=== PATIENT | female | born 1960 | race Caucasian/White ===

== ENCOUNTER → 2017-01-15 | Outpatient (CLI) | payer OTHER ==
--- NOTE | 2017-01-15 13:58 | REP ---
Clinical: Radiculopathy. Cervical pain. Technique: AP and lateral views of the cervical through lumbosacral spine. Findings: Multilevel moderate to advanced degenerative changes are noted throughout the spine and findings include osteophytosis, endplate sclerosis and disc space narrowing. Alignment is otherwise normal and maintained throughout. There is no evidence for acute fracture / compression injury or subluxation. Impression: Moderate to advanced multilevel degenerative changes throughout the entire cervical through lumbar spine. No acute fracture / compression injury or subluxation. Signed by Darren De Guzman MD 01/15/2017 01:49 P
--- NOTE | 2017-01-15 17:02 | REPMRS ---
Patient History The patient states she has not had a clinical breast exam in over a year. Family history of breast cancer in mother. Digital Mammo Screening Bilat: January 15, 2017 - Exam #: [id number] Bilateral CC and MLO view(s) were taken. Technologist: Breana Lim, Technologist Prior study comparison: March 02, 2014, bilateral digital mammo screening bilat performed at [facility]. FINDINGS: There are scattered fibroglandular densities. There has been no change in the appearance of the mammogram from the prior studies. There is a mild amount of scattered fibroglandular density which is fairly symmetric. There is no interval development of dominant mass, architectural distortion, or clustered microcalcification suggestive of malignancy. ASSESSMENT: BI-RADS/ACR category 1 mammogram. Negative. Recommendation Routine screening mammogram in 1 year (for women over age 40). This mammogram was interpreted with the aid of an FDA-approved computer-aided dectection system. Electronically Signed By: Alec Mcclelland MD 01/15/17 [id number]
== END ==
LOC: M RAD 13:22
PROVIDERS: ATTEND Nurse Practitioner
DX: Z12.31 Encounter for screening mammogram for malignant neoplasm of breast (principal); M54.2 Cervicalgia
CPT/HCPCS: 72082; G0202

== ENCOUNTER → 2017-01-25 | Outpatient (CLI) | payer OTHER ==
--- NOTE | 2017-01-25 13:15 | REP ---
PARANASAL SINUSES: Four views of the paranasal sinuses are performed. No definite abnormal sinus opacification is seen. Adenoids do not appear to be enlarged. Nasopharyngeal airway appears widely patent. IMPRESSION: No radiographic evidence of significant sinusitis. Signed by Alex Singh MD 01/25/2017 02:25 P
== END ==
LOC: M RAD 11:28
PROVIDERS: ATTEND Physician Assistant
DX: J32.9 Chronic sinusitis, unspecified (principal)

== ENCOUNTER → 2017-07-12 | Outpatient (CLI) | payer OTHER ==
[2017-07-12 10:24] LABS: ANION GAP 8 MEQ/L (8-16); BLOOD UREA NITROGEN 14 MG/DL (7-18); CALCIUM LEVEL 8.6 MG/DL (8.5-10.1); CARBON DIOXIDE LEVEL 28 MEQ/L (21-32); CHLORIDE LEVEL 105 MEQ/L (98-107); GLOMERULAR FILTRATION RATE > 60.0 (>51); GLUCOSE, FASTING 151 MG/DL (70-100); POTASSIUM SERUM 4.2 MEQ/L (3.5-5.1); SODIUM LEVEL 141 MEQ/L (136-145)
[2017-07-12 10:43] LABS: HEMOGLOBIN 14.1 g/dl (12.0-16.0); MEAN CORPUSCULAR HEMOGLOBIN 31.8 pg (27.0-33.0); MEAN CORPUSCULAR HGB CONC 33.6 g/dl (32.0-36.5); MEAN CORPUSCULAR VOLUME 94.8 fl (80.0-96.0); PLATELET COUNT, AUTOMATED 289 10^3/uL (150-450); RED BLOOD COUNT 4.43 10^6/uL (4.00-5.40); RED CELL DISTRIBUTION WIDTH 12.7 % (11.5-14.5); WHITE BLOOD COUNT 9.5 10^3/uL (4.0-10.0)
== END ==
LOC: M LAB 09:11
DX: I10 Essential (primary) hypertension (principal); J44.9 Chronic obstructive pulmonary disease, unspecified; F17.200 Nicotine dependence, unspecified, uncomplicated; E78.2 Mixed hyperlipidemia
CPT/HCPCS: 80048

== ENCOUNTER 2017-07-26 08:29 | Day surgery (SDC) | payer OTHER ==
[2017-07-26] MEDS: LR 1,000 ML IV ×2 (10:15→16:00)
[2017-07-26] MEDS ORDERED: dexameTHASONE 4 MG/ML 1ML VIAL (J1100) As Ordered (12:11)
[2017-07-26] MEDS ORDERED: PROPOFOL 200 MG/20 ML VIAL As Ordered (12:11)
[2017-07-26] MEDS ORDERED: MIDAZOLAM INJ 2 MG/2 ML VIAL (J2250) As Ordered (12:11)
[2017-07-26] MEDS ORDERED: LIDOCAINE 2% INJ 100 MG/5 ML SDV (FOR ANES.) As Ordered (12:11)
[2017-07-26] MEDS ORDERED: fentaNYL 100 MCG/2 ML INJECTION (J3010) As Ordered ×3 (12:11→13:46)
[2017-07-26] MEDS ORDERED: ROCURONIUM BROMIDE 50 MG/5 ML VIAL As Ordered (12:11)
[2017-07-26] MEDS: LIDOCAINE W/EPINEPHRINE 1% 20ML VIAL As Ordered (12:15)
[2017-07-26] MEDS: METHYLENE BLUE 0.5% (5MG/ML) 10 ML AMP (PROVAYBLUE)(Q9968 PER 1MG) As Ordered (12:15)
[2017-07-26] MEDS: CIPRODEX OTIC SUSP 7.5ML As Ordered (12:15)
[2017-07-26] MEDS: EPINEPHrine 1MG/ML INJ 30ML MD-VIAL As Ordered (12:16)
[2017-07-26] MEDS ORDERED: ONDANSETRON 4MG/2ML VIAL (J2405) As Ordered (14:39)
[2017-07-26] MEDS ORDERED: KETOROLAC 60 MG/2 ML VIAL (J1885) As Ordered (14:42)
[2017-07-26] MEDS ORDERED: BACITRACIN OINT 30GM As Ordered (14:46)
[2017-07-26] MEDS ORDERED: METOCLOPRAMIDE INJ 10MG/2ML VIAL (J2765) IV (16:00)
[2017-07-26] MEDS ORDERED: fentaNYL 100 MCG/2 ML INJECTION (J3010) IV (16:00)
[2017-07-26] MEDS ORDERED: ONDANSETRON 4MG/2ML VIAL (J2405) IV (16:00)
[2017-07-26] MEDS ORDERED: PERCOCET 5MG/325MG TAB PO (16:00)
[2017-07-26] MEDS ORDERED: ANEXSIA, NORCO 7.5MG/325MG TABLET(HYDROCODONE/APAP) PO (16:15)
[2017-07-26] MEDS ORDERED: ALBUTEROL 90 MCG/ACT 8GM HFA INHALER INH (16:30)
[2017-07-26] MEDS: ANEXSIA, NORCO 7.5MG/325MG TABLET(HYDROCODONE/APAP) PO (16:35)
[2017-07-26] MEDS: IBUPROFEN 800 MG TAB PO (21:05)
[2017-07-27] MEDS: IBUPROFEN 800 MG TAB PO ×2 (04:57→14:26)
[2017-07-27] MEDS: ANEXSIA, NORCO 7.5MG/325MG TABLET(HYDROCODONE/APAP) PO (07:05)
[2017-07-27] MEDS: LISINOPRIL 20 MG TAB PO (08:35)
== END 2017-07-27 15:15 | disposition home or self-care (01) ==
LOC: M SDC 08:29 → M PED 16:05
DX: H71.21 Cholesteatoma of mastoid, right ear (principal); H90.11 Conductive hearing loss, unilateral, right ear, with unrestricted hearing on the contralateral side; E66.9 Obesity, unspecified; Z79.899 Other long term (current) drug therapy; Z79.82 Long term (current) use of aspirin; F17.210 Nicotine dependence, cigarettes, uncomplicated; H60.41 Cholesteatoma of right external ear
CPT/HCPCS: 69637

== ENCOUNTER → 2017-11-15 | Outpatient (CLI) | payer OTHER | LOC: M EKG 13:30 | DX: Z01.818 Encounter for other preprocedural examination (principal) | CPT/HCPCS: 93005 ==

== ENCOUNTER 2017-11-19 06:56 | Observation (INO) | payer OTHER ==
[2017-11-19] MEDS ORDERED: LR 1,000 ML IV ×2 (07:15)
[2017-11-19] MEDS ORDERED: ROSUVASTATIN 10 MG TAB (CRESTOR) PO ×2 (09:00)
[2017-11-19] MEDS ORDERED: fentaNYL 100 MCG/2 ML INJECTION (J3010) As Ordered ×4 (10:07→10:10)
[2017-11-19] MEDS ORDERED: MIDAZOLAM INJ 2 MG/2 ML VIAL (J2250) As Ordered ×2 (10:10)
[2017-11-19] MEDS ORDERED: ONDANSETRON 4MG/2ML VIAL (J2405) As Ordered ×2 (10:10)
[2017-11-19] MEDS ORDERED: dexameTHASONE 4 MG/ML 1ML VIAL (J1100) As Ordered ×4 (10:10)
[2017-11-19] MEDS ORDERED: KETOROLAC 60 MG/2 ML VIAL (J1885) As Ordered ×2 (10:12)
[2017-11-19] MEDS ORDERED: LIDOCAINE 2% INJ 100 MG/5 ML SDV (FOR ANES.) As Ordered ×2 (10:12)
[2017-11-19] MEDS ORDERED: ROCURONIUM BROMIDE 50 MG/5 ML VIAL As Ordered ×2 (10:12)
[2017-11-19] MEDS ORDERED: PROPOFOL 200 MG/20 ML VIAL As Ordered ×4 (10:12→10:30)
[2017-11-19] MEDS ORDERED: HYDROmorphone HCL 2 MG/ML 1ML VIAL (J1170) As Ordered ×2 (10:27)
[2017-11-19] MEDS ORDERED: PHENYLEPHRINE INJ 10MG/ML VIAL (J2370) As Ordered ×2 (10:46)
[2017-11-19] MEDS: METHYLENE BLUE 0.5% (5MG/ML) 10 ML AMP (PROVAYBLUE)(Q9968 PER 1MG) As Ordered ×2 (11:13)
[2017-11-19] MEDS: EPINEPHrine INJ 1 MG/ML 1ML AMP As Ordered ×2 (11:13)
[2017-11-19] MEDS: CIPRODEX OTIC SUSP 7.5ML As Ordered ×2 (11:57)
[2017-11-19] MEDS: LIDOCAINE W/EPINEPHRINE 1% 20ML VIAL As Ordered ×2 (12:11)
[2017-11-19] MEDS: BACITRACIN OINT 30GM As Ordered ×2 (12:26)
[2017-11-19] MEDS: LR 1,000 ML IV ×4 (12:52→16:21)
[2017-11-19] MEDS ORDERED: LEVALBUTEROL 1.25 MG/0.5 ML CONCENTRATE NEB As Ordered ×2 (12:57)
[2017-11-19] MEDS: LEVALBUTEROL 1.25 MG/0.5 ML CONCENTRATE NEB INH ×2 (13:00)
[2017-11-19] MEDS ORDERED: fentaNYL 100 MCG/2 ML INJECTION (J3010) IV ×2 (13:00)
[2017-11-19] MEDS ORDERED: ONDANSETRON 4MG/2ML VIAL (J2405) IV ×2 (13:00)
[2017-11-19] MEDS ORDERED: HYDROMORPHONE HCL 0.5 MG/ 0.5 ML SYRINGE (J1170 PER 1) IV ×2 (13:00)
[2017-11-19] MEDS ORDERED: PERCOCET 5MG/325MG TAB PO ×2 (13:00)
[2017-11-19] MEDS ORDERED: ANEXSIA, NORCO 7.5MG/325MG TABLET(HYDROCODONE/APAP) PO ×2 (14:45)
[2017-11-19] MEDS: LISINOPRIL 20 MG TAB PO ×2 (16:01)
[2017-11-19] MEDS: IBUPROFEN 800 MG TAB PO ×2 (17:44)
[2017-11-19] MEDS: AUGMENTIN 875 MG TAB PO ×4 (21:00→23:39)
[2017-11-20] MEDS: LR 1,000 ML IV ×2
[2017-11-20] MEDS ORDERED: UNRESOLVED CLARIFICATION ENTRY XX ×2 (00:01)
[2017-11-20] MEDS: IBUPROFEN 800 MG TAB PO ×2 (04:25)
[2017-11-20] MEDS: AUGMENTIN 875 MG TAB PO ×2 (08:55)
[2017-11-20] MEDS: LISINOPRIL 20 MG TAB PO ×2 (08:56)
== END 2017-11-20 09:20 | disposition home or self-care (01) ==
LOC: M SDC 06:56 → M PED 12:30 → M SDC 11-20 09:43 → M PED 15:18
DX: H71.21 Cholesteatoma of mastoid, right ear (principal); H71.01 Cholesteatoma of attic, right ear; I10 Essential (primary) hypertension; J44.9 Chronic obstructive pulmonary disease, unspecified; M19.90 Unspecified osteoarthritis, unspecified site; M54.81 Occipital neuralgia; F17.210 Nicotine dependence, cigarettes, uncomplicated; Z79.899 Other long term (current) drug therapy; Z79.2 Long term (current) use of antibiotics
CPT/HCPCS: 69641

== ENCOUNTER → 2017-12-27 | Outpatient (REF) | payer OTHER ==
[2017-12-27 14:23] LABS: APPEARANCE, URINE TURBID (CLEAR); BACTERIA, URINE AUTO NEGATIVE (NEGATIVE); BILIRUBIN, URINE AUTO NEGATIVE (NEGATIVE); BLOOD, URINE BLOOD 1+ (NEGATIVE); COLOR, URINE YELLOW (YELLOW); GLUCOSE, URINE (UA) AUTO 2+ mg/dL (NEGATIVE); KETONE, URINE AUTO NEGATIVE (NEGATIVE); LEUKOCYTE ESTERASE, URINE AUTO 3+ (NEGATIVE); NITRITE, URINE AUTO POSITIVE (NEGATIVE); PROTEIN, URINE AUTO NEGATIVE (NEGATIVE); RBC, URINE AUTO 9 /HPF (0-3); SPECIFIC GRAVITY URINE AUTO 1.011 (1.002-1.035); SQUAMOUS EPITHELIAL CELL UR AU 2 /HPF (0-6); UROBILINOGEN, URINE AUTO 0.2 mg/dL (0.0-2.0); WBC, URINE AUTO TNTC /HPF (0-3)
== END ==
LOC: M LAB REF 12:47
DX: N39.0 Urinary tract infection, site not specified (principal)

== ENCOUNTER → 2018-01-13 | Outpatient (CLI) | payer OTHER ==
[2018-01-13 22:12] LABS: ALKALINE PHOSPHATASE 113 U/L (45-117); ALT/SGPT 27 U/L (12-78); ANION GAP 10 MEQ/L (8-16); AST/SGOT 21 U/L (7-37); BILIRUBIN,TOTAL 0.2 MG/DL (0.2-1.0); BLOOD UREA NITROGEN 12 MG/DL (7-18); CALCIUM LEVEL 8.7 MG/DL (8.5-10.1); CARBON DIOXIDE LEVEL 24 MEQ/L (21-32); CHLORIDE LEVEL 103 MEQ/L (98-107); CREATININE FOR GFR 0.78 MG/DL (0.55-1.30); GLOMERULAR FILTRATION RATE > 60.0 (>51); GLUCOSE, FASTING 126 MG/DL (70-100); POTASSIUM SERUM 4.3 MEQ/L (3.5-5.1); SODIUM LEVEL 137 MEQ/L (136-145); TRIGLYCERIDES LEVEL 460 MG/DL (<150)
[2018-01-13 22:13] LABS: ALBUMIN 3.5 GM/DL (3.2-5.2); TOTAL PROTEIN 7.3 GM/DL (6.4-8.2)
[2018-01-13 23:29] LABS: ALBUMIN/GLOBULIN RATIO 0.92 (1.00-1.93); CHOLESTEROL LEVEL 197 MG/DL (<200); CHOLESTEROL RISK RATIO 5.472 (<5); HDL CHOLESTEROL 36 MG/DL (>40); NON-HDL-C 161 MG/DL
[2018-01-14 00:45] LABS: ESTIMATED AVERAGE GLUCOSE 157 MG/DL (60-110); HEMOGLOBIN A1c 7.1 %
== END ==
LOC: M LAB 11:24
DX: R73.01 Impaired fasting glucose (principal); I10 Essential (primary) hypertension
CPT/HCPCS: 80053

== ENCOUNTER → 2018-01-20 | Outpatient (CLI) | payer OTHER | LOC: M RAD 11:11 | DX: Z12.31 Encounter for screening mammogram for malignant neoplasm of breast (principal) | CPT/HCPCS: 77067 ==

== ENCOUNTER 2018-01-24 08:08 | Observation (INO) | payer OTHER ==
[2018-01-24] MEDS: EPINEPHrine INJ 1 MG/ML 1ML AMP As Ordered (06:50)
[2018-01-24 09:18] LABS: BEDSIDE GLUCOSE 112 MG/DL (70-105)
[2018-01-24] MEDS ORDERED: ONDANSETRON 4MG/2ML VIAL (J2405) As Ordered (09:22)
[2018-01-24] MEDS ORDERED: dexameTHASONE 4 MG/ML 1ML VIAL (J1100) As Ordered ×2 (09:22→09:23)
[2018-01-24] MEDS ORDERED: LIDOCAINE 2% INJ 100 MG/5 ML SDV (FOR ANES.) As Ordered (09:22)
[2018-01-24] MEDS ORDERED: PROPOFOL 200 MG/20 ML VIAL As Ordered (09:22)
[2018-01-24] MEDS ORDERED: ROCURONIUM BROMIDE 50 MG/5 ML VIAL As Ordered (09:23)
[2018-01-24] MEDS ORDERED: MIDAZOLAM INJ 2 MG/2 ML VIAL (J2250) As Ordered (09:24)
[2018-01-24] MEDS ORDERED: fentaNYL 100 MCG/2 ML INJECTION (J3010) As Ordered ×2 (09:24→10:41)
[2018-01-24] MEDS ORDERED: HYDROmorphone HCL 2 MG/ML 1ML VIAL (J1170) As Ordered (10:48)
[2018-01-24] MEDS: LIDOCAINE W/EPINEPHRINE 1% 20ML VIAL As Ordered (10:54)
[2018-01-24] MEDS: METHYLENE BLUE 0.5% (5MG/ML) 10 ML AMP (PROVAYBLUE)(Q9968 PER 1MG) As Ordered (11:01)
[2018-01-24] MEDS: EPINEPHrine 1MG/ML INJ 30ML MD-VIAL As Ordered (11:01)
[2018-01-24] MEDS ORDERED: PHENYLephrine HCL 500 MCG/5 ML (100MCG/ML) SYRINGE (J2370) As Ordered (11:20)
[2018-01-24] MEDS ORDERED: SUCCINYLCHOLINE 100 MG/5 ML SYRINGE (J0330) As Ordered (11:20)
[2018-01-24] MEDS ORDERED: SUGAMMADEX SODIUM 500 MG/5 ML VIAL (BRIDION) As Ordered (11:51)
[2018-01-24] MEDS ORDERED: METOPROLOL 5 MG/5 ML VIAL As Ordered (12:56)
[2018-01-24] MEDS: CIPRODEX OTIC SUSP 7.5ML As Ordered (13:03)
[2018-01-24] MEDS: BACITRACIN OINT 30GM As Ordered (13:18)
[2018-01-24] MEDS ORDERED: ONDANSETRON 4MG/2ML VIAL (J2405) IV (14:30)
[2018-01-24] MEDS ORDERED: METOCLOPRAMIDE INJ 10MG/2ML VIAL (J2765) IV (14:30)
[2018-01-24] MEDS ORDERED: MEPERIDINE INJ 25 MG/ML VIAL (J2175) IV (14:30)
[2018-01-24] MEDS: LR 1,000 ML IV (14:30)
[2018-01-24] MEDS ORDERED: fentaNYL 100 MCG/2 ML INJECTION (J3010) IV (14:30)
[2018-01-24] MEDS ORDERED: PERCOCET 5MG/325MG TAB PO (14:30)
[2018-01-24] MEDS ORDERED: ALBUTEROL 90 MCG/ACT 8GM HFA INHALER INH (14:45)
[2018-01-24] MEDS: IBUPROFEN 800 MG TAB PO (15:04)
[2018-01-24] MEDS: NORCO, ANEXSIA 5/325MG TABLET (HYDROcodone/ACETAMINOPHEN) PO (20:38)
[2018-01-24] MEDS: AMITRIPTYLINE 50 MG TAB PO (20:38)
[2018-01-24] MEDS ORDERED: NORTRIPTYLINE 25 MG CAP PO (21:00)
[2018-01-25] MEDS: NORCO, ANEXSIA 5/325MG TABLET (HYDROcodone/ACETAMINOPHEN) PO (04:58)
[2018-01-25] MEDS: metFORMIN (GLUCOPHAGE) 500 MG TAB PO (07:58)
[2018-01-25 07:59] LABS: BEDSIDE GLUCOSE 163 MG/DL (70-105)
[2018-01-25] MEDS: LISINOPRIL 20 MG TAB PO (08:00)
== END 2018-01-25 12:45 | disposition home or self-care (01) ==
LOC: M SDC 08:08 → M PED 15:25 → M SDC 13:39 → M PED 13:40
PROVIDERS: Otolaryngology
DX: H71.91 Unspecified cholesteatoma, right ear (principal); E11.9 Type 2 diabetes mellitus without complications; I10 Essential (primary) hypertension; J44.9 Chronic obstructive pulmonary disease, unspecified; F17.210 Nicotine dependence, cigarettes, uncomplicated; Z79.899 Other long term (current) drug therapy; Z79.4 Long term (current) use of insulin
CPT/HCPCS: 69637

== ENCOUNTER → 2018-04-08 | Outpatient (CLI) | payer OTHER | LOC: M RAD 10:49 | DX: M50.320 Other cervical disc degeneration, mid-cervical region, unspecified level (principal); M50.220 Other cervical disc displacement, mid-cervical region, unspecified level; M54.81 Occipital neuralgia; M47.816 Spondylosis without myelopathy or radiculopathy, lumbar region; M47.817 Spondylosis without myelopathy or radiculopathy, lumbosacral region; M51.27 Other intervertebral disc displacement, lumbosacral region | CPT/HCPCS: 72148 ==

== ENCOUNTER → 2018-05-11 | Outpatient (REF) | payer OTHER ==
[~2018-05-11] MED LIST: ADVI200C5 PO; ANOR1AER IN; ASPI1TAB PO; AUGM875T28 PO; CEFU1TAB20 PO; COMBAER6 INH; HYDR-2809 PO; LISI-538 PO; METF500T13 PO; NORT25CA2 PO; TIZA2CAP PO; VENTAER IN
[2018-05-11 22:20] LABS: APPEARANCE, URINE CLOUDY (CLEAR); BACTERIA, URINE AUTO 1+ (NEGATIVE); BILIRUBIN, URINE AUTO NEGATIVE (NEGATIVE); BLOOD, URINE BLOOD 1+ (NEGATIVE); COLOR, URINE YELLOW (YELLOW); GLUCOSE, URINE (UA) AUTO NEGATIVE (NEGATIVE); KETONE, URINE AUTO NEGATIVE (NEGATIVE); LEUKOCYTE ESTERASE, URINE AUTO 3+ (NEGATIVE); MUCUS, URINE SMALL (NEGATIVE); NITRITE, URINE AUTO NEGATIVE (NEGATIVE); PROTEIN, URINE AUTO 1+ mg/dL (NEGATIVE); RBC, URINE AUTO 16 /HPF (0-3); SPECIFIC GRAVITY URINE AUTO 1.006 (1.002-1.035); SQUAMOUS EPITHELIAL CELL UR AU 0 /HPF (0-6); UROBILINOGEN, URINE AUTO 0.2 mg/dL (0.0-2.0); WBC, URINE AUTO TNTC /HPF (0-3)
== END ==
LOC: M LAB REF 10:48
PROVIDERS: ATTEND Physician Assistant Medical
DX: N39.0 Urinary tract infection, site not specified (principal)

== ENCOUNTER → 2018-06-09 | Outpatient (CLI) | payer OTHER ==
[2018-06-09 09:28] LABS: BLOOD UREA NITROGEN 14 MG/DL (7-18); CALCIUM LEVEL 8.5 MG/DL (8.5-10.1); CARBON DIOXIDE LEVEL 27 MEQ/L (21-32); CHLORIDE LEVEL 104 MEQ/L (98-107); GLOMERULAR FILTRATION RATE > 60.0 (>51); GLUCOSE, FASTING 123 MG/DL (70-100); POTASSIUM SERUM 4.2 MEQ/L (3.5-5.1); SODIUM LEVEL 138 MEQ/L (136-145)
[2018-06-09 09:31] LABS: HEMOGLOBIN A1c 7.6 %
== END ==
LOC: M LAB 08:10
PROVIDERS: ATTEND Nurse Practitioner Family
DX: I10 Essential (primary) hypertension (principal); E11.9 Type 2 diabetes mellitus without complications

== ENCOUNTER → 2018-09-08 | Outpatient (CLI) | payer OTHER ==
[~2018-09-08] MED LIST changes: -ASPI1TAB PO; +ASPI81TA26 PO
[2018-09-08 14:35] LABS: BLOOD UREA NITROGEN 25 MG/DL (7-18); CARBON DIOXIDE LEVEL 27 MEQ/L (21-32); CHLORIDE LEVEL 108 MEQ/L (98-107); CHOLESTEROL LEVEL 212 MG/DL (<200); CHOLESTEROL RISK RATIO 5.888 (<5); CREATININE FOR GFR 1.05 MG/DL (0.55-1.30); GLOMERULAR FILTRATION RATE 57.3 (>51); GLUCOSE, FASTING 224 MG/DL (70-100); HDL CHOLESTEROL 36 MG/DL (>40); HEMOGLOBIN A1c 6.7 %; NON-HDL-C 176 MG/DL; POTASSIUM SERUM 4.5 MEQ/L (3.5-5.1); SODIUM LEVEL 139 MEQ/L (136-145); TRIGLYCERIDES LEVEL 709 MG/DL (<150)
== END ==
LOC: M LAB 13:06
PROVIDERS: ATTEND Nurse Practitioner Family
DX: E11.9 Type 2 diabetes mellitus without complications (principal); I10 Essential (primary) hypertension

== ENCOUNTER → 2018-09-15 | Outpatient (CLI) | payer OTHER ==
[2018-09-15 10:40] LABS: CHOLESTEROL RISK RATIO 4.272 (<5)
== END ==
LOC: M LAB 09:42
PROVIDERS: ATTEND Nurse Practitioner Family
DX: I10 Essential (primary) hypertension (principal)

== ENCOUNTER 2018-10-28 09:10 | Outpatient (RCR) | payer OTHER | END 2018-11-02 | LOC: M PT 09:10 | PROVIDERS: ATTEND Nurse Practitioner Family | DX: M54.2 Cervicalgia (principal) ==

== ENCOUNTER → 2018-10-28 | Outpatient (CLI) | payer OTHER ==
--- NOTE | 2018-10-28 11:36 | REP ---
MRI LUMBAR SPINE WITHOUT CONTRAST: HISTORY: Spinal stenosis, radiculopathy. Progressive low back pain. Comparison MRI lumbar spine study April 08, 2018. TECHNIQUE: Sagittal and axial T1- and T2-weighted scans are acquired in the usual fashion with and without fat saturation. Sequences include spin echo, turbo spin echo, and STIR imaging sequences. MRI FINDINGS: Lumbar vertebral body heights are preserved. Alignment is normal. Diffuse degenerative spondylosis changes are again noted. There is diffuse bulging of the posterior margin of the T10-11 and T11-12 disc spaces indenting the thecal sac margin. No cord compression is seen. The tip of the conus is normal in position and appearance at T12-L1. There is mild central disc bulging of the T12-L1 disc. No central canal stenosis is seen. At L1-2, axial and sagittal images show diffuse disc bulging and posterior osteophytic ridging. There is mild facet and ligamentum flavum hypertrophy again noted. These findings are unchanged. L2-3, there is moderate diffuse disc bulging and posterior osteophytic ridging indenting the ventral margin of the thecal sac. There is bilateral facet and ligamentum flavum hypertrophy and as a result, there is mild central canal stenosis. This is unchanged from the April 08, 2018 prior study. Midline AP dimension of the thecal sac is present at L2-3. The CSF signal is somewhat effaced. At L3-4, there are similar findings with bilateral facet and ligamentum flavum hypertrophy. There is a small central focal disc protrusion again noted unchanged. Borderline canal size is seen. There is neural foraminal narrowing on the left. This is unchanged. At L4-5, bilateral facet and ligamentum flavum hypertrophy. There is mild central canal stenosis with posterior disc bulging diffusely. The disc bulge is more prominent to the right. These findings are unchanged as well. There is mild central canal stenosis at L4-5 again noted. Midline AP dimension of the thecal sac is 7 mm. There is mild left-sided neural foraminal narrowing again noted. At L5-S1, there is mild disc bulging and osteophytic ridging subtly indenting the ventral margin of the thecal sac. Facet hypertrophy is noted. No central canal stenosis is visible. No neural foraminal narrowing. IMPRESSION: Fairly advanced degenerative spondylosis changes at multiple levels. Findings are felt to be stable from the prior study of April 08, 2018. Electronically Signed by David Mccellland MD 10/28/2018 03:48 P
== END ==
LOC: M RAD 10:22
PROVIDERS: ATTEND Nurse Practitioner Family
DX: M51.24 Other intervertebral disc displacement, thoracic region (principal); M51.26 Other intervertebral disc displacement, lumbar region; M48.061 Spinal stenosis, lumbar region without neurogenic claudication

== ENCOUNTER 2018-11-17 12:50 | Outpatient (RCR) | payer OTHER | END 2018-12-03 | LOC: M PT 12:50 | PROVIDERS: ATTEND Nurse Practitioner Family | DX: Z51.89 Encounter for other specified aftercare (principal); M54.2 Cervicalgia ==

== ENCOUNTER → 2018-12-03 | Outpatient (CLI) | payer OTHER ==
[2018-12-03 07:16] LABS: HEMOGLOBIN A1c 6.5 %
[2018-12-03 07:21] LABS: ALBUMIN 3.7 GM/DL (3.2-5.2); BILIRUBIN,TOTAL 0.3 MG/DL (0.2-1.0); CALCIUM LEVEL 8.9 MG/DL (8.5-10.1); CREATININE FOR GFR 1.08 MG/DL (0.55-1.30); GLOMERULAR FILTRATION RATE 55.5 (>51); POTASSIUM SERUM 4.7 MEQ/L (3.5-5.1); TOTAL PROTEIN 7.7 GM/DL (6.4-8.2)
== END ==
LOC: M LAB 06:17
PROVIDERS: ATTEND Nurse Practitioner Family
DX: E11.9 Type 2 diabetes mellitus without complications (principal)

== ENCOUNTER 2018-12-26 07:53 | Day surgery (SDC) | payer OTHER ==
[~2018-12-26] VITALS: Ht 160 cm; Wt 81.2 kg
[2018-12-26] MEDS: LR 1,000 ML IV ONE (06:00)
[~2018-12-26 07:53] MED LIST changes: +HYDR-4514 PO; +IBUP80TA PO; +METF750T PO; +NESI25TA PO; +OCUF0.25 AU
[2018-12-26 08:36] LABS: HEMATOCRIT 40.9 % (36.0-47.0); HEMOGLOBIN 13.8 g/dl (12.0-15.5); MEAN CORPUSCULAR HGB CONC 33.7 g/dl (32.0-36.5); MEAN CORPUSCULAR VOLUME 97.8 fl (80.0-96.0); PLATELET COUNT, AUTOMATED 236 10^3/uL (150-450); RED BLOOD COUNT 4.18 10^6/uL (4.00-5.40); WHITE BLOOD COUNT 8.7 10^3/uL (4.0-10.0)
[2018-12-26] MEDS ORDERED: **UNRESOLVED NON-FORMULARY MED ORDER XX SCH (09:00)
[2018-12-26] MEDS ORDERED: ONDANSETRON 4MG/2ML VIAL (J2405) As Ordered ONE (09:21)
[2018-12-26] MEDS ORDERED: dexameTHASONE 4 MG/ML 1ML VIAL (J1100) As Ordered ONE (09:21)
[2018-12-26] MEDS ORDERED: ROCURONIUM BROMIDE 50 MG/5 ML VIAL As Ordered ONE ×2 (09:21→14:53)
[2018-12-26] MEDS ORDERED: fentaNYL 250 MCG/5 ML INJECTION (J3010) As Ordered ONE (09:21)
[2018-12-26] MEDS ORDERED: PROPOFOL 200 MG/20 ML VIAL As Ordered ONE ×2 (09:21→16:55)
[2018-12-26] MEDS ORDERED: LIDOCAINE 2% INJ 100 MG/5 ML SDV (FOR ANES.) As Ordered ONE (09:21)
[2018-12-26] MEDS ORDERED: MIDAZOLAM INJ 2 MG/2 ML VIAL (J2250) As Ordered ONE (09:21)
[2018-12-26] MEDS: EPINEPHrine INJ 1 MG/ML 1ML AMP As Ordered ONE (12:32)
[2018-12-26] MEDS: LIDOCAINE W/EPINEPHRINE 1% 20ML VIAL As Ordered ONE (13:40)
[2018-12-26] MEDS: METHYLENE BLUE 0.5% (5MG/ML) 10 ML AMP (PROVAYBLUE)(Q9968 PER 1MG) As Ordered ONE (13:50)
[2018-12-26] MEDS: EPINEPHrine 1MG/ML INJ 30ML MD-VIAL As Ordered ONE (13:50)
[2018-12-26] MEDS ORDERED: ACETAMINOPHEN 1000MG 100ML IV BTL (OFIRMEV) (J0131 PER 10MG) As Ordered ONE (14:03)
[2018-12-26] MEDS ORDERED: HYDROmorphone HCL 2 MG/ML 1ML VIAL (J1170) As Ordered ONE (14:48)
[2018-12-26] MEDS ORDERED: SUGAMMADEX SODIUM 500 MG/5 ML VIAL (BRIDION) As Ordered ONE (16:23)
[2018-12-26] MEDS: BACITRACIN OINT 30GM As Ordered ONE (16:29)
[2018-12-26] MEDS: CIPRODEX OTIC SUSP 7.5ML As Ordered ONE (16:40)
[2018-12-26] MEDS ORDERED: fentaNYL 100 MCG/2 ML INJECTION (J3010) IV PRN ×2 (17:30→22:30)
[2018-12-26] MEDS ORDERED: oxyCODONE 5MG TAB PO PRN ×2 (17:30→22:30)
[2018-12-26] MEDS ORDERED: LR 1,000 ML IV SCH ×2 (17:30→22:30)
[2018-12-26] MEDS ORDERED: ONDANSETRON 4MG/2ML VIAL (J2405) IV PRN ×2 (17:30→22:30)
[2018-12-26] MEDS ORDERED: ALBUTEROL 90 MCG/ACT 8GM HFA INHALER INH PRN (17:45)
[2018-12-26 18:05] VITALS: BP 157/75
[2018-12-27] MEDS ORDERED: LISINOPRIL 20 MG TAB PO SCH (09:00)
--- NOTE | 2018-12-27 14:51 | ECGEPIP ---
[facility] Test Date: 2018-12-26 Pat Name: MELONY OLIVARES Department: Room: - Gender: Female Epic Analyst: DANIEL : 1960 Requested By: JOSE DE JESUS Uribe Order Number: [id number] Reading MD: Soledad Gillis Measurements Intervals [place] Rate: 93 P: 70 TN: 152 QRS: -16 QRSD: 83 T: 43 QT: 360 QTc: 449 Interpretive Statements SINUS RHYTHM POOR R WAVE PROGRESSION SIMILAR TO 11/15/17 Electronically Signed on 12-27-2018 14:51:29 EDT by Soledad Gillis
--- NOTE | 2018-12-29 21:47 | RO ---
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 OPERATION PERFORMED: Right tympanomastoidectomy with a canal wall down tympanomastoidectomy. Also removal of foreign body in ear canal c/w retained q- tip. SURGEON: Henrique Steele Jr, MD ASSOCIATE ENGINEER: ANESTHESIA: Initially was general via endotracheal tube by Dr. Garcia along with WEALTH MANAGEMENT MANAGER. INDICATIONS FOR PROCEDURE: Patient with recurrent cholesteatoma with severe COPD, as well as previous extrusion of her prosthesis. Plan at this point was to see if she could be salvaged, but at this point, canal wall down mastoidectomy was performed. DESCRIPTION OF PROCEDURE: Unfortunately, in this patient, because of her high narcotic content, she could not be kept under control from previous experiences without keeping her paralyzed and because of the difficulty in keeping her at the proper depth of anesthesia. Therefore, facial nerve monitor was not used as it was more important to keep her stable without moving, which would be difficult to keep her under control with the anesthesia because of her high maintenance. PROCEDURE IN DETAIL: With the patient in the supine position after being induced, intubated, prepped and draped in the usual fashion, the ear canal was examined. There was a foreign body that was present, there was a retained Q-tip that was in the ear canal. This was removed and sent as a specimen of foreign body in the right ear canal. At this point, the vascular strip was injected with 1% lidocaine and 1:100,000 epinephrine, retroauricular incision site was also injected until a total of 10 mL was injected with a 27 gauge needle. The patient was prepped and draped in the usual fashion as well as the microscope. Once this was done, vascular strip was incised with a sickle knife and then with a #15 blade. Tympanomeatal flap was created after connecting with the round knife. As previously mentioned, there was a foreign body that was removed. There was perforation inferiorly as well as superiorly where she had the previous ossicular prosthesis that she had extruded and had been removed in the clinic previously. At this point, a retroauricular incision was incised with the cautery in the same one that was done before, cautery cutting at 20 and then coag at 25. This was elevated, fresh tympanomeatal fascia was obtained and further up incision site and placed in the Paparella press and pressed for 30 minutes and then opened up. After this was done, the cautery was used to find the posterior aspect of the mastoid, which was palpated and then utilizing the cautery at 25, this was taken down to the external cortex of the bone. Utilizing the [place] elevator, this was elevated, brought anteriorly. I should also mention that tympanomeatal flap had been previously created and brought up where the incision would be visible retroauricularly. The mastoid cortex was discovered with the cautery, guarded Bovie tip, posteriorly and then utilizing the [place], the mastoid cavity was entered. There was chronic inflammation present in the mastoid. Initially there was not cholesteatoma identified. However, upon dissecting further with a cotton ball with epi, there was a sac of cholesteatoma in the mastoid. This was elevated, a sample of this was removed and sent as specimen, as well as chronic inflammation as well. This was taken down so the mastoid could be completely seen where epitympanic space had been previously identified. Her ossicles had been completely eroded previously, and the total ossicular chain reconstruction prosthesis had been put in before. This area did have evidence of mild cholesteatoma that was present. There was also inferior perforation that was relatively new in the pars tensa. This area was elevated, and it became evident that again there was cholesteatoma going in the mesotympanic space, and there was also erosion of the posterior canal partially anyway, so at this point it was felt that the prudent thing would be to do a canal wall procedure. So, at this point, tympanomeatal flap was created and elevated. There was chronic inflammation. The previously chorda tympani was identified. Lateral semicircular canal was identified. Utilizing the 4 round cutting bur, the mastoid cavity was refreshened, taken down to smooth bone. Facial buttress was taken down as well as the bridge of the epitympanic space was removed and taken down as well. At this point, the 3 mm rayne bur was utilized to take down the facial buttress, facial recess was identified as well as the chorda tympani going into this area was cleared of bone but chorda spared. Part of the mastoid tip was also taken down as well but not completely. She did have a BIS monitor on, but when the paralysis started to wear off, along with even with the BIS monitor she was under control, she had some heavy breathing that caused significant moving, and she had to be re-paralyzed periodically throughout the case so that the surgeon could work effectively. Once this was done, the area was copiously irrigated. The mastoid cavity was freshened with the 3 rayne as unfortunately there was not a larger rayne bur available. This was done and smoothed out. The mesotympanic space did show an evidence of cholesteatoma more overlying near the region of the facial nerve. This was carefully dissected out. There was also further material that was also further dissected out as well. The facial nerve was intact. The patient then had the inferior middle ear space identified and elevated again with the Gimmick. There was no further cholesteatoma identified in the mesotympanic space. This was brought anteriorly. There was some chronic granulation tissue. Portions of this were biopsied with cups forceps and sent as well. After the canal wall down had been completed, the patient had Palva flap created and a meatoplasty was performed. A #15 blade was used to widen the opening 12 and 6 o'clock, taken posteriorly. The skin was kept and utilizing cup forceps, the deeper tissue was taken down and thinned. Once this was done, the temporalis fascia was placed as the medial graft in the inferior TM perforation and then Gelfoam with Ciprodex was also placed to the Silastic sheet 0.1, 3 mm was placed in the mesotympanic space and then the Gelfoam was placed in the middle meatus to improve the region. At this point, once this was done, attention was also done and the perforation was rimmed inferiorly appropriately, and again, the graft was placed as a medial graft. Again, Silastic spacer had been placed as well as Gelfoam, and then anteriorly Gelfoam was placed as well. At this point, the previous canal wall down mastoidectomy site further Gelfoam was placed in this area, portion of the material was also placed down. The Palva flap was placed posteriorly and then packed. There was Gelfoam that was placed and Ciprodex as well as OtoPore; three OtoPores were placed to maintain the width of the meatoplasty and to seat the Palva flap, as well as Vaseline impregnated gauze in the linda bowl as well as a cotton ball with bacitracin ointment. The retroauricular area was closed interrupted with #4-0 Vicryl followed by closing with a running interlocking #4- 0 nylon stitch retroauricularly. At this point, paper tape was placed over the posterior auricular region, as well as the cotton ball with Vaseline and a [place] dressing was applied. The patient was taken to the recovery room in satisfactory condition. Estimated blood loss was approximately 50 mL. There were no complications intraoperatively. MARISOL
== END 2018-12-26 18:30 | disposition home or self-care (01) ==
LOC: EEVIPCON 07:53 → M SDC 07:53
PROVIDERS: ATTEND Otolaryngology
DX: H70.11 Chronic mastoiditis, right ear (principal); H72.91 Unspecified perforation of tympanic membrane, right ear; J44.9 Chronic obstructive pulmonary disease, unspecified; G89.4 Chronic pain syndrome; I10 Essential (primary) hypertension; E11.9 Type 2 diabetes mellitus without complications; M12.9 Arthropathy, unspecified; M54.2 Cervicalgia; M54.81 Occipital neuralgia; R06.83 Snoring; R06.09 Other forms of dyspnea; Z79.899 Other long term (current) drug therapy; Z79.84 Long term (current) use of oral hypoglycemic drugs; Z72.0 Tobacco use; Z78.0 Asymptomatic menopausal state

== ENCOUNTER → 2019-01-02 | Outpatient (REF) | payer OTHER ==
[~2019-01-02] MED LIST changes: -METF750T PO; +METF750T36 PO
== END ==
LOC: M LAB REF 16:16
PROVIDERS: ATTEND Otolaryngology
DX: H71.21 Cholesteatoma of mastoid, right ear (principal)

== ENCOUNTER → 2019-02-25 | Outpatient (CLI) | payer OTHER ==
--- NOTE | 2019-02-25 16:19 | REP ---
BILATERAL MAMMOGRAM WITH BREAST TOMOSYNTHESIS AND LEFT BREAST ULTRASOUND: The patient complains of long standing constant pain in the upper outer quadrant of the left breast. There is a family history of breast cancer in mother. [facility] lifetime risk of breast cancer 13.2%. Comparison mammogram 01/20/2018 and 01/15/2017. Mild scattered fibroglandular tissue is stable. There is no new mass. No suspicious clusters of microcalcifications are seen. There is a well circumscribed stable nodule in the outer left breast 4 mm in diameter. Real-time sonographic evaluation of upper outer quadrant of the left breast is performed in the region of pain. No suspicious mass is seen. In the region of the left axilla a lymph node is seen measuring 1.4 x 0.9 x 1.5 cm. A small subcentimeter hypoechoic nodule 6 x 4 x 7 mm also probably represents a lymph node. IMPRESSION: ACR 2 benign. No suspicious mass or clustered microcalcifications. Stable findings as discussed in detail above. Recommend followup mammogram in one year. BIRADS 2: BI-RADS/ACR category 2 mammogram. Benign Findings. This mammogram was interpreted with the aid of an FDA-approved computer-aided detection system. The patient states she had a clinical breast exam in 02/2019. The patient letter being requested is M2. Electronically Signed by Alex Singh MD 02/28/2019 10:03 A
== END ==
LOC: M RAD 14:15
PROVIDERS: ATTEND Nurse Practitioner Family
DX: N64.4 Mastodynia (principal); Z80.3 Family history of malignant neoplasm of breast; N63.21 Unspecified lump in the left breast, upper outer quadrant
CPT/HCPCS: 76642; 77066; G0279

== ENCOUNTER → 2019-03-17 | Outpatient (REF) | payer OTHER ==
[2019-03-17 21:40] LABS: APPEARANCE, URINE CLOUDY (CLEAR); BACTERIA, URINE AUTO 2+ (NEGATIVE); BILIRUBIN, URINE AUTO NEGATIVE (NEGATIVE); BLOOD, URINE BLOOD 2+ (NEGATIVE); COLOR, URINE YELLOW (YELLOW); GLUCOSE, URINE (UA) AUTO NEGATIVE (NEGATIVE); KETONE, URINE AUTO NEGATIVE (NEGATIVE); LEUKOCYTE ESTERASE, URINE AUTO 2+ (NEGATIVE); MUCUS, URINE SMALL (NEGATIVE); NITRITE, URINE AUTO POSITIVE (NEGATIVE); PROTEIN, URINE AUTO 2+ mg/dL (NEGATIVE); RBC, URINE AUTO 166 /HPF (0-3); SPECIFIC GRAVITY URINE AUTO 1.021 (1.002-1.035); SQUAMOUS EPITHELIAL CELL UR AU 0 /HPF (0-6); UROBILINOGEN, URINE AUTO 0.2 mg/dL (0.0-2.0); WBC, URINE AUTO TNTC /HPF (0-3)
== END ==
LOC: EEVIPCON 08:59 → M LAB REF 08:59
PROVIDERS: ATTEND Physician Assistant
DX: N39.0 Urinary tract infection, site not specified (principal)

== ENCOUNTER → 2019-03-31 | Outpatient (REF) | payer OTHER ==
[2019-03-31 13:05] LABS: APPEARANCE, URINE CLOUDY (CLEAR); BACTERIA, URINE AUTO NEGATIVE (NEGATIVE); BILIRUBIN, URINE AUTO NEGATIVE (NEGATIVE); BLOOD, URINE BLOOD 1+ (NEGATIVE); COLOR, URINE YELLOW (YELLOW); GLUCOSE, URINE (UA) AUTO NEGATIVE (NEGATIVE); KETONE, URINE AUTO NEGATIVE (NEGATIVE); LEUKOCYTE ESTERASE, URINE AUTO 3+ (NEGATIVE); NITRITE, URINE AUTO NEGATIVE (NEGATIVE); PROTEIN, URINE AUTO 1+ mg/dL (NEGATIVE); RBC, URINE AUTO 36 /HPF (0-3); SQUAMOUS EPITHELIAL CELL UR AU 0 /HPF (0-6); URIC ACID CRYSTALS LARGE; UROBILINOGEN, URINE AUTO 0.2 mg/dL (0.0-2.0); WBC, URINE AUTO TNTC /HPF (0-3)
== END ==
LOC: M LAB REF 11:26
PROVIDERS: ATTEND Physician Assistant Medical
DX: N39.0 Urinary tract infection, site not specified (principal)

== ENCOUNTER → 2019-06-18 | Outpatient (CLI) | payer OTHER ==
[2019-06-18 10:05] LABS: BASO # 0.1 10^3/uL (0.0-0.2); BASO % 0.9 % (0.0-1.0); EOS # 0.2 10^3/uL (0.0-0.5); EOS % 2.2 % (0.0-3.0); HEMATOCRIT 40.8 % (36.0-47.0); HEMOGLOBIN 13.5 g/dl (12.0-15.5); LYMPH # 2.3 10^3/uL (1.5-5.0); LYMPH % 24.9 % (24.0-44.0); MEAN CORPUSCULAR HGB CONC 33.1 g/dl (32.0-36.5); MEAN CORPUSCULAR VOLUME 96.7 fl (80.0-96.0); MONO # 0.7 10^3/uL (0.0-0.8); MONO % 7.1 % (0.0-5.0); NEUTROPHILS # 5.9 10^3/uL (1.5-8.5); NEUTROPHILS % 64.6 % (36.0-66.0); PLATELET COUNT, AUTOMATED 301 10^3/uL (150-450); RED BLOOD COUNT 4.22 10^6/uL (4.00-5.40); WHITE BLOOD COUNT 9.2 10^3/uL (4.0-10.0)
[2019-06-18 10:34] LABS: HEMOGLOBIN A1c 6.2 %
[2019-06-18 10:38] LABS: ALBUMIN 3.5 GM/DL (3.2-5.2); ALT/SGPT 21 U/L (12-78); BILIRUBIN,TOTAL 0.3 MG/DL (0.2-1.0); BLOOD UREA NITROGEN 15 MG/DL (7-18); CALCIUM LEVEL 8.5 MG/DL (8.5-10.1); CARBON DIOXIDE LEVEL 29 MEQ/L (21-32); CHLORIDE LEVEL 104 MEQ/L (98-107); CHOLESTEROL LEVEL 166 MG/DL (<200); CHOLESTEROL RISK RATIO 3.952 (<5); CREATININE FOR GFR 0.75 MG/DL (0.55-1.30); FREE T4 0.96 NG/DL (0.76-1.46); GLOMERULAR FILTRATION RATE > 60.0 (>51); GLUCOSE, FASTING 101 MG/DL (70-100); HDL CHOLESTEROL 42 MG/DL (>40); LDL CHOLESTEROL 88 MG/DL (<100); NON-HDL-C 124 MG/DL; POTASSIUM SERUM 4.4 MEQ/L (3.5-5.1); SODIUM LEVEL 139 MEQ/L (136-145); TOTAL PROTEIN 6.9 GM/DL (6.4-8.2); TRIGLYCERIDES LEVEL 180 MG/DL (<150)
== END ==
LOC: M LAB 09:11
PROVIDERS: ATTEND Nurse Practitioner Family
DX: E11.9 Type 2 diabetes mellitus without complications (principal)

== ENCOUNTER → 2019-06-25 | Outpatient (CLI) | payer OTHER ==
--- NOTE | 2019-06-25 14:59 | REP ---
Clinical: Postmenopausal bleeding. Technique: Transabdominal pelvic ultrasound followed by transvaginal examination for better evaluation of the endometrium and adnexa with color Doppler evaluation of the ovaries. Findings: Bladder is normal and measures 6.2 x 4.3 x 5.4 cm. Heterogeneous anteverted uterus measures 7.3 x 4.4 x 5.0 cm. Endometrial complex measures 5.4 mm thickness. 2.3 x 2.2 x 2.9 cm anterior intramural/subserosal fibroid is identified. Left ovary is not visualized. Right ovary is normal in vascularity without torsion and measures 4.0 x 2.5 x 2.2 cm (RI 0.70) with 2.9 x 2.4 x 1.9 cm simple cyst. No pelvic fluid. Impression: 1. 2.9 cm anterior fibroid. 2. Left ovary not visualized. Right ovary includes 2.9 cm cyst likely physiologic. Consider reevaluation in 4-6 weeks to evaluate for resolution. Electronically Signed by Darren De Guzman MD 06/25/2019 02:50 P
== END ==
LOC: M RAD 12:54
PROVIDERS: ATTEND Nurse Practitioner Family
DX: N95.0 Postmenopausal bleeding (principal); D25.1 Intramural leiomyoma of uterus; N83.201 Unspecified ovarian cyst, right side

== ENCOUNTER 2019-07-14 19:18 | Inpatient (IN) | payer OTHER ==
[~2019-07-14] VITALS: Ht 160 cm; Wt 83.0 kg
[~2019-07-14 19:18] MED LIST changes: -FLON1SPR; -IBUP1TAB7 PO; -NICO21DI31 TD; -VENTAER INH
[2019-07-14] MEDS ORDERED: dexameTHASONE 20 MG/5 ML VIAL (J1100) IV ONE (20:00)
[2019-07-14 20:03] LABS: BASO # 0.1 10^3/uL (0.0-0.2); BASO % 0.7 % (0.0-1.0); EOS # 0.3 10^3/uL (0.0-0.5); EOS % 3.8 % (0.0-3.0); HEMOGLOBIN 13.1 g/dl (12.0-15.5); LYMPH # 2.9 10^3/uL (1.5-5.0); LYMPH % 34.4 % (24.0-44.0); MEAN CORPUSCULAR HEMOGLOBIN 31.5 pg (27.0-33.0); MEAN CORPUSCULAR HGB CONC 33.6 g/dl (32.0-36.5); MEAN CORPUSCULAR VOLUME 93.8 fl (80.0-96.0); MONO # 0.8 10^3/uL (0.0-0.8); MONO % 9.2 % (0.0-5.0); NEUTROPHILS # 4.4 10^3/uL (1.5-8.5); NEUTROPHILS % 51.5 % (36.0-66.0); PLATELET COUNT, AUTOMATED 254 10^3/uL (150-450); RED BLOOD COUNT 4.16 10^6/uL (4.00-5.40); WHITE BLOOD COUNT 8.5 10^3/uL (4.0-10.0)
[2019-07-14 20:25] LABS: ALBUMIN 3.6 GM/DL (3.2-5.2); ALT/SGPT 20 U/L (12-78); BILIRUBIN,DIRECT < 0.1 MG/DL (0.0-0.2); BILIRUBIN,TOTAL 0.2 MG/DL (0.2-1.0); BLOOD UREA NITROGEN 17 MG/DL (7-18); CALCIUM LEVEL 8.8 MG/DL (8.5-10.1); CARBON DIOXIDE LEVEL 27 MEQ/L (21-32); CHLORIDE LEVEL 105 MEQ/L (98-107); CK-MB VALUE MASS 1.4 NG/ML (<3.6); CPK CREATINE PHOSPHOKINASE 82 U/L (26-192); CREATININE FOR GFR 0.75 MG/DL (0.55-1.30); GLOMERULAR FILTRATION RATE > 60.0 (>51); GLUCOSE, FASTING 116 MG/DL (70-100); MB/CK RELATIVE INDEX 1.71 (< OR =4); NT-PRO BNP 47 PG/ML (<125); POTASSIUM SERUM 4.3 MEQ/L (3.5-5.1); SODIUM LEVEL 139 MEQ/L (136-145); TOTAL PROTEIN 7.1 GM/DL (6.4-8.2); TROPONIN I < 0.02 NG/ML (< 0.10)
[2019-07-14] MEDS: IPRATROPIUM 0.5MG/ALBUTEROL 2.5MG INH SOL UD 3ML (DUONEB)(J7620) NEB SCH ×2 (20:28→20:36)
[2019-07-14] MEDS: HumaLOG INSULIN (NovoLOG) PER UNIT SC SCH (21:00)
[2019-07-14 21:08] LABS: INFLUENZA A AMPLIFICATION NEGATIVE (NEGATIVE); INFLUENZA B AMPLIFICATION NEGATIVE (NEGATIVE)
[2019-07-14] MEDS ORDERED: ALBUTEROL SULFATE 2.5 MG/0.5 ML INH NEB SOLN NEB PRN (22:15)
[2019-07-14] MEDS ORDERED: GLUCAGON FOR INJ 1 MG VIAL (J1610) SC PRN (22:15)
[2019-07-14] MEDS ORDERED: MAALOX 30 ML SUSP *UDC PO PRN (22:15)
[2019-07-14] MEDS ORDERED: GLUCOSE 4 GM CHEW TABLET PO PRN (22:15)
[2019-07-14] MEDS ORDERED: DEXTROSE 50% 50 ML SYRINGE IV PRN (22:15)
[2019-07-14] MEDS ORDERED: ACETAMINOPHEN TAB 650MG DOSE (2X325MG) PO PRN (22:15)
[2019-07-14] MEDS ORDERED: MOM 30ML SUSPENSION UDC PO PRN (22:15)
--- NOTE | 2019-07-14 22:21 | HPEPDOC ---
[facility] Medical History & Physical Date of Admission Jul 14, 2019 Date of Service: Jul 14, 2019 Primary Care Physician: Gladys Vivas TRADE RECRUITER Attending Physician: Ronny Coe MD History and Physical TIME OF SERVICE: 10:49 PM CHIEF COMPLAINT: Shortness of breath HISTORY OF PRESENT ILLNESS: This is a 59-year-old female who presents with complaints of progressively worse pamela shortness of breath since February. She thought that this may be triggered by a chemical at her workplace, but her symptoms don't change when she is not at work. She also thought it might be something in her apartment but her symptoms did not improve despite cleaning her apartment. Today she came in today because her symptoms were worse and she felt like she couldn't wait for her upcoming appointment in October. She has mid chest and upper back pain that is made worse by coughing. She denies having fevers, chills, nausea, vomiting, sick contacts, or traveling. Per Dr. Ye or her EKG showed sinus tachycardia & the BNP was 47; troponin, chest x-ray, and influenza panel were unrevealing. At rest her O2 saturations dropped as low as 88% on room air. She received [employer] REVIEW OF SYSTEMS: 12 point review of systems negative except as listed in HPI PAST MEDICAL/ SURGICAL HISTORY: Chronic HTN COPD NIDDM A1c 6.2% Dyslipidemia Osteoarthritis Hip replacement Cholecystectomy Bladder sling surgery Right ear surgery 2 A right revision of tympanomastoidectomy with facial nerve monitoring SOCIAL HISTORY: She has been smoking for over 40 years. Over the last few months. She's cut down from 2 packs a day to 2 cigarettes per day FAMILY HISTORY: Mother had breast cancer and bone cancer ALLERGIES: Please see below. HOME MEDICATIONS: Please see below. Vital Signs Date Time Temp Pulse Resp B/P (MAP) Pulse Ox O2 Delivery O2 Flow Rate FiO2 07/14/19 19:24 97.4 104 90 Room Air 07/14/19 19:33 166/82 (110) 07/14/19 19:43 24 07/14/19 21:00 3.0 PHYSICAL EXAMINATION: GEN: well nourished / well developed/ NAD INTEGUMENT: She doesn't have facial plethora HEENT:NCAT / lips are not cyanotic /she doesn't have pursed lip breathing / NC in place CVS: RRR/ distant heart sounds / radial pulses intact / no lower extremity edema LUNGS: there is no nasal flaring / she is not able to speak full sentences without stopping to take a breath / there is decreased respiratory expansion/ she has expiratory wheezing ABDOMEN: Contour obese / soft & not tender with palpation MSK/EXTREMITIES: range of motion intact in all 4 extremities NEURO: CN 2-12 are grossly intact / speech is not dysarthric PSYCH: alert and oriented to person place and time/ able to understand and follow all commands LABORATORY DATA: Total Bilirubin 0.2, Direct Bilirubin < 0.1, Aspartate Amino Transf (AST/SGOT) 16, Alanine Aminotransferase (ALT/SGPT) 20, Alkaline Phosphatase 108, Total Creatine Kinase 82, Creatine Kinase MB 1.4, Creatine Kinase MB Relative Index 1.71, Troponin I < 0.02, MS-Ekn-Z-Type Natriuretic Peptide 47, Total Protein 7.1, Albumin 3.6, Albumin/Globulin Ratio 1.03 Influenza Type A (RT-PCR) NEGATIVE, Influenza Type B (RT-PCR) NEGATIVE IMAGING: Chest x-ray there appears to be some congestion at the lung bases, but the final read is pending MICROBIOLOGY: Please see below. ASSESSMENT: Ms. Nazario is a 59-year-old with a history of HTN, COPD, and NIDDM who was admitted for management of acute COPD. PLAN: 1. Acute COPD Acute worsening of dyspnea may be due to smoking or viral infection or changes in weather [place] chronic obstructive pulmonary disease risk scare (OCRS) guide to admission vs discharge in COPD exacerbation = 6 points = 47.5.% risk of adverse event She received Decadron in the ER Plan: admit to medical floor / supplemental O2 / continuous pulse oximetry / aspiration precautions / COPD diet / f/u full respiratory panel / Dunebs Q6H, Albuterol Q1HP, Prednisone + PPI / will give not Levofloxacin because she has mod to severe exacerbation / Tessalon Pearbebe / refer to Dental Scheduling Coordinator for repeat PFTs and Pulmonary Rehab when ready for d/c 2. SIRS Likely reactive due to a combination of acute COPD and neb tx SIRS criteria include HR >90 / RR >20 Lactic acid >2 Plan: monitor vitals 3.NIDDM A1C 6.2% - f/u accuchecks / hypoglycemia protocol / sliding scale insulin / hold oral anti-glycemics 4. Chronic HTN - target blood pressure with coexisting DM is under 130/80 / lisinopril 5. Obesity with BMI of 32 and coexisting diabetes complicates care - f/u w his or her PCP for STOP BANG questionnaire & relay motorman consult / recommend cardiovascular exercise for 40 min 4-5 days a week 6. Tobacco abuse - smoking cessation education/nicotine patch DVT PROPHYLAXIS: Lovenox DISPOSITION: Home after more than 2 midnight's stay Home Medications Scheduled Lisinopril (Lisinopril) 20 Mg Tab, 20 MG PO DAILY Metformin HCl (Metformin HCl ER) 750 Mg Tab.er.24h, 750 MG PO BID Nicotine (Nicotine Patch) 21 Mg Patch.td24, 21 MG TD DAILY Scheduled PRN Albuterol Sulfate (Ventolin Hfa) 18 Gm Hfa.aer.ad, 2 PUFF INH Q4H PRN for SHORTNESS OF BREATH Fluticasone Propionate (Flonase Allergy Relief) 9.9 Ml Carmen.susp, 2 SPRAYS NA BID PRN for NASAL CONGESTION Hydrocodone/Acetaminophen (Hydrocodone-Acetamin 7.5-325) 1 Each Tablet, 1 TAB PO Q6H PRN for PAIN Ibuprofen (Ibuprofen) 800 Mg Tablet, 800 MG PO TID PRN for PAIN Ipratropium/Albuterol Sulfate (Combivent Respimat 20-100 Mcg) 4 Gm Mist.inhal, 1 PUFF INH QID PRN for SHORTNESS OF BREATH Allergies Coded Allergies: No Known Allergies (Unverified , 12/19/18) A-FIB/CHADSVASC A-FIB History Current/History of A-Fib/PAF?: No Current PO Anticoag Therapy: No ANIVAL GUILLEN MD Jul 14, 2019 22:21
[2019-07-14] MEDS ORDERED: COMBAER6 INH (22:43)
[2019-07-14] MEDS ORDERED: NICO21DI31 TD (22:43)
[2019-07-14] MEDS ORDERED: FLON1SPR (22:43)
[2019-07-14] MEDS ORDERED: VENTAER INH (22:43)
[2019-07-14] MEDS ORDERED: IBUP1TAB7 PO (22:43)
[2019-07-14] MEDS: LevoFLOXacin 500 MG TABLET PO SCH (23:28)
[2019-07-14 23:34] LABS: VENOUS BASE EXCESS -1.6 (-2.0-2.0); VENOUS HCO3 24.1 MEQ/L (23.0-27.0); VENOUS O2 SATURATION 97.9 % (60.0-80.0); VENOUS PARTIAL PRESSURE CO2 44.4 mmHg (38.0-50.0); VENOUS PARTIAL PRESSURE O2 105.7 mmHg (30.0-50.0); VENOUS PH 7.353 UNITS (7.330-7.430); VENOUS STANDARD HCO3 23.2 MEQ/L; VENOUS TOTAL CO2 25.5 MEQ/L (24.0-28.0)
[2019-07-15] VITALS (19 sets, daily range): BP systolic 138–170; BP diastolic 78–98; O2SAT 88–95
[2019-07-15] MEDS ORDERED: BENZONATATE 100 MG CAP PO PRN (01:15)
[2019-07-15] MEDS: ANEXSIA, NORCO 7.5MG/325MG TABLET(HYDROCODONE/APAP) PO PRN ×4 (01:41→22:26)
[2019-07-15] MEDS: IPRATROPIUM 0.5MG/ALBUTEROL 2.5MG INH SOL UD 3ML (DUONEB)(J7620) NEB SCH ×4 (01:43→18:26)
--- NOTE | 2019-07-15 03:35 | REP ---
Clinical: Dyspnea. Technique: PA and lateral. Comparison: 08/16/2009. Findings: Mediastinum and cardiac silhouette are normal. Subtle lingular/left basilar atelectasis is suggested and should be correlated clinically. No effusion. No pneumothorax. Skeletal structures intact. Impression: Subtle lingular/left basilar atelectasis suggested. Electronically Signed by Darren De Guzman MD 07/15/2019 03:26 A
[2019-07-15 05:33] LABS: HEMATOCRIT 40.7 % (36.0-47.0); HEMOGLOBIN 13.4 g/dl (12.0-15.5); MEAN CORPUSCULAR HEMOGLOBIN 31.2 pg (27.0-33.0); MEAN CORPUSCULAR HGB CONC 32.9 g/dl (32.0-36.5); MEAN CORPUSCULAR VOLUME 94.7 fl (80.0-96.0); PLATELET COUNT, AUTOMATED 273 10^3/uL (150-450); WHITE BLOOD COUNT 7.3 10^3/uL (4.0-10.0)
[2019-07-15 05:52] LABS: BLOOD UREA NITROGEN 17 MG/DL (7-18); CALCIUM LEVEL 8.9 MG/DL (8.5-10.1); CARBON DIOXIDE LEVEL 25 MEQ/L (21-32); CHLORIDE LEVEL 101 MEQ/L (98-107); CREATININE FOR GFR 0.99 MG/DL (0.55-1.30); GLOMERULAR FILTRATION RATE > 60.0 (>51); GLUCOSE, FASTING 276 MG/DL (70-100); MAGNESIUM LEVEL 1.9 MG/DL (1.8-2.4); POTASSIUM SERUM 4.3 MEQ/L (3.5-5.1); SODIUM LEVEL 135 MEQ/L (136-145)
[2019-07-15] MEDS: NICOTINE 21MG/24HR 1 EA TRANSDERMAL TD SCH ×2 (08:00→20:41)
[2019-07-15] MEDS: ENOXAPARIN 40 MG/0.4 ML SYRINGE (J1650) SC SCH (08:01)
[2019-07-15] MEDS: HumaLOG INSULIN (NovoLOG) PER UNIT SC SCH ×4 (08:01→20:42)
[2019-07-15] MEDS: DOCUSATE SODIUM 100 MG CAP PO SCH ×2 (08:01→20:42)
[2019-07-15] MEDS: predniSONE 20 MG TAB PO SCH (08:01)
[2019-07-15] MEDS: lisinopriL 20 MG TAB PO SCH (08:02)
[2019-07-15] MEDS: PANTOPRAZOLE 40MG TAB (PROTONIX) PO SCH (08:04)
--- NOTE | 2019-07-15 09:54 | IPNPDOC ---
Subjective Date Seen The patient was seen on 07/15/19. Subjective Chief Complaint/HPI SOB, COPD Events since last encounter Admitted for hypoxia and placed on oxygen. CXR negative. Patient notes significant improvement in symptoms with oxygen and neb txs. Constitutional: Denies: Chills, Fever, Night Sweats Pulmonary: Reports: Dyspnea, Cough Cardiovascular: Denies: Chest Pain, Palpitations, Orthopnea, Paroxysmal Noc. Dyspnea, Lt Headedness Gastrointestinal: Denies: Nausea, Vomiting, Abdominal Pain, Diarrhea, Constipation, Melena, Hematochezia, Other Symptoms Genitourinary: Denies: Dysuria, Frequency, Incontinence, Retention Psych: Reports: Mood Normal; Denies: Depression, Memory Issues Objective Physical Examination General Exam: Positive: Alert, No Acute Distress Eye Exam: Positive: PERRLA, Conjunctiva & lids normal, EOMI; Negative: Sclera icteric Chest Exam: Positive: Diminished Heart Exam: Positive: Rate Normal, Regular Rhythm, Normal S1, Normal S2; Negative: Murmurs, Rubs Telemetry: Positive: No significant arrhythmia Abdomen Exam: Positive: Normal bowel sounds, Soft; Negative: Tenderness, Hepatospenomegaly Psych Exam: Positive: Mental status NL, Mood NL, Oriented x 3 Assessment /Plan Problems (1) Hypoxia Status: Acute Problem Text: may need senior care oxygen upon DC home (2) COPD exacerbation Status: Acute Problem Text: Duoneb q 6 hrs. prednisone 40 mg po daily. Oxygen supplementation for sats 88-92%. Has pending pulm consult. (3) Diabetes mellitus Status: Chronic Problem Text: Home dose of Metformin on hold. patient aware glucose may be elev ated with use of steroids. 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 Plan/VTE VTE Prophylaxis Ordered?: Yes VS, I&O, 24H, Fishbone Vital Signs/I&O Vital Signs Date Time Temp Pulse Resp B/P (MAP) Pulse Ox O2 Delivery O2 Flow Rate FiO2 07/15/19 08:50 20 Nasal Cannula 3.0 07/15/19 08:02 162/98 07/15/19 07:39 97.6 107 95 I&O- Last 24 Hours up to 6 AM 07/15/19 06:00 Intake Total 360 ml Output Total 400 ml Balance -40 ml Laboratory Data 24H LABS Laboratory Tests 2 07/14/19 19:47: Immature Granulocyte % (Auto) 0.4, Neutrophils (%) (Auto) 51.5, Lymphocytes (%) (Auto) 34.4, Monocytes (%) (Auto) 9.2H, Eosinophils (%) (Auto) 3.8H, Basophils (%) (Auto) 0.7, Neutrophils # (Auto) 4.4, Lymphocytes # (Auto) 2.9, Monocytes # (Auto) 0.8, Eosinophils # (Auto) 0.3, Basophils # (Auto) 0.1, Nucleated Red Blood Cells % (auto) 0.0, Anion Gap 7L, Glomerular Filtration Rate > 60.0, Calcium Level 8.8, Total Bilirubin 0.2, Direct Bilirubin < 0.1, Aspartate Amino Transf (AST/SGOT) 16, Alanine Aminotransferase (ALT/SGPT) 20, Alkaline Phosphatase 108, Total Creatine Kinase 82, Creatine Kinase MB 1.4, Creatine Kinase MB Relative Index 1.71, Troponin I < 0.02, OR-Tst-D-Type Natriuretic Peptide 47, Total Protein 7.1, Albumin 3.6, Albumin/Globulin Ratio 1.03 07/14/19 20:30: Influenza Type A (RT-PCR) NEGATIVE, Influenza Type B (RT-PCR) NEGATIVE 07/14/19 23:24: Bedside Glucose (Misc Panel) 213H 07/14/19 23:27: Blood Gas Bicarbonate Standard 23.2, Venous Blood pH 7.353, Venous Blood Partial Pressure CO2 44.4, Venous Blood Partial Pressure O2 105.7H, Venous Blood Total Carbon Dioxide 25.5, Venous Blood HCO3 24.1, Venous Blood Oxygen Saturation 97.9H, Venous Blood Base Excess -1.6, Lactic Acid Level 1.7 07/15/19 05:04: Nucleated Red Blood Cells % (auto) 0.0, Anion Gap 9, Glomerular Filtration Rate > 60.0, Calcium Level 8.9, Magnesium Level 1.9 CBC/BMP Laboratory Tests 07/14/19 19:47 07/15/19 05:04 Gladys Vivas [facility] Jul 15, 2019 09:54
[2019-07-15] MEDS ORDERED: SLF 3 ML SYR IV PRN (12:00)
[2019-07-15] MEDS: SLF 3 ML SYR IV SCH ×2 (14:02→20:43)
[2019-07-15] MEDS: LevoFLOXacin 500 MG TABLET PO SCH (18:12)
--- NOTE | 2019-07-15 20:53 | ECGEPIP ---
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
[2019-07-16] MEDS: IPRATROPIUM 0.5MG/ALBUTEROL 2.5MG INH SOL UD 3ML (DUONEB)(J7620) NEB SCH ×4 (02:13→18:01)
[2019-07-16 06:00] VITALS: BP 133/79
[2019-07-16 06:55] LABS: BASO # 0.1 10^3/uL (0.0-0.2); BASO % 0.4 % (0.0-1.0); EOS % 0.3 % (0.0-3.0); HEMATOCRIT 38.4 % (36.0-47.0); HEMOGLOBIN 12.7 g/dl (12.0-15.5); LYMPH # 2.7 10^3/uL (1.5-5.0); LYMPH % 22.6 % (24.0-44.0); MEAN CORPUSCULAR HEMOGLOBIN 31.5 pg (27.0-33.0); MEAN CORPUSCULAR HGB CONC 33.1 g/dl (32.0-36.5); MEAN CORPUSCULAR VOLUME 95.3 fl (80.0-96.0); MONO # 0.8 10^3/uL (0.0-0.8); MONO % 6.6 % (0.0-5.0); NEUTROPHILS # 8.2 10^3/uL (1.5-8.5); NEUTROPHILS % 69.7 % (36.0-66.0); PLATELET COUNT, AUTOMATED 263 10^3/uL (150-450); RED BLOOD COUNT 4.03 10^6/uL (4.00-5.40); WHITE BLOOD COUNT 11.8 10^3/uL (4.0-10.0)
[2019-07-16] MEDS: ANEXSIA, NORCO 7.5MG/325MG TABLET(HYDROCODONE/APAP) PO PRN ×2 (06:57→15:26)
[2019-07-16] MEDS: SLF 3 ML SYR IV SCH ×3 (06:58→21:18)
[2019-07-16 07:14] LABS: ALBUMIN 3.2 GM/DL (3.2-5.2); ALT/SGPT 17 U/L (12-78); BILIRUBIN,TOTAL 0.2 MG/DL (0.2-1.0); BLOOD UREA NITROGEN 21 MG/DL (7-18); CALCIUM LEVEL 8.9 MG/DL (8.5-10.1); CARBON DIOXIDE LEVEL 28 MEQ/L (21-32); CHLORIDE LEVEL 107 MEQ/L (98-107); GLOMERULAR FILTRATION RATE > 60.0 (>51); GLUCOSE, FASTING 110 MG/DL (70-100); POTASSIUM SERUM 4.5 MEQ/L (3.5-5.1); SODIUM LEVEL 140 MEQ/L (136-145); TOTAL PROTEIN 6.7 GM/DL (6.4-8.2)
[2019-07-16] MEDS: HumaLOG INSULIN (NovoLOG) PER UNIT SC SCH ×4 (08:51→21:00)
[2019-07-16] MEDS: DOCUSATE SODIUM 100 MG CAP PO SCH ×2 (08:52→21:18)
[2019-07-16] MEDS: PANTOPRAZOLE 40MG TAB (PROTONIX) PO SCH (08:52)
[2019-07-16] MEDS: predniSONE 20 MG TAB PO SCH (08:52)
[2019-07-16] MEDS: ENOXAPARIN 40 MG/0.4 ML SYRINGE (J1650) SC SCH (08:53)
[2019-07-16] MEDS: lisinopriL 20 MG TAB PO SCH (08:54)
[2019-07-16 09:00] VITALS: O2SAT 93
--- NOTE | 2019-07-16 10:25 | IPNPDOC ---
Subjective Date Seen The patient was seen on 07/16/19. Subjective Chief Complaint/HPI Pt this morning without new concerns. She states that she wants to be DC on O2 as she walks everywhere including to work and often feels very winded after getting there. She has bene off O2 while asleep and in her room since yesterday. I just spoke with nursing, she has not been walked yet off O2. General: Denies: Fatigue Constitutional: Denies: Chills, Fever Pulmonary: Reports: Dyspnea, Cough Cardiovascular: Denies: Chest Pain, Palpitations Gastrointestinal: Denies: Nausea, Vomiting, Diarrhea Neurological: Denies: Weakness Psych: Reports: Mood Normal Objective Physical Examination General Exam: Positive: Alert, No Acute Distress Chest Exam: Positive: Clear to auscultation, Diminished Heart Exam: Positive: Rate Normal, Regular Rhythm, Normal S1, Normal S2; Negative: Murmurs, Rubs Telemetry: Positive: No significant arrhythmia Abdomen Exam: Positive: Normal bowel sounds, Soft; Negative: Tenderness, Hepatospenomegaly Psych Exam: Positive: Mood NL, Oriented x 3 Assessment /Plan Problems (1) COPD exacerbation Status: Acute Problem Text: Duoneb q 6 hrs. prednisone 40 mg po daily. Oxygen supplementation for sats 88- 92%. Not yet safe per PT, once safe, plan to DC home. (2) Hypoxia Status: Acute Problem Text: 07/15 nursing to walk pt. 07/14 may need skilled nursing oxygen upon DC home (3) Diabetes mellitus Status: Chronic Problem Text: Home dose of Metformin on hold. patient aware glucose may be elevated with use of steroids. 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 Plan/VTE VTE Prophylaxis Ordered?: Yes VS, I&O, 24H, Fishbone Vital Signs/I&O Vital Signs Date Time Temp Pulse Resp B/P (MAP) Pulse Ox O2 Delivery O2 Flow Rate FiO2 07/16/19 08:54 150/97 07/16/19 07:27 18 07/16/19 06:57 95 Room Air 07/16/19 06:00 98.3 98 07/15/19 22:26 2.0 I&O- Last 24 Hours up to 6 AM 07/16/19 05:59 Intake Total 1470 ml Output Total 400 ml Balance 1070 ml Laboratory Data 24H LABS Laboratory Tests 2 07/15/19 11:41: Bedside Glucose (Misc Panel) 198H 07/15/19 16:21: Bedside Glucose (Misc Panel) 340H 07/15/19 20:28: Bedside Glucose (Misc Panel) 253H 07/16/19 06:35: Immature Granulocyte % (Auto) 0.4, Neutrophils (%) (Auto) 69.7H, Lymphocytes (%) (Auto) 22.6L, Monocytes (%) (Auto) 6.6H, Eosinophils (%) (Auto) 0.3, Basophils (%) (Auto) 0.4, Neutrophils # (Auto) 8.2, Lymphocytes # (Auto) 2.7, Monocytes # (Auto) 0.8, Eosinophils # (Auto) 0.0, Basophils # (Auto) 0.1, Nucleated Red Blood Cells % (auto) 0.0, Anion Gap 5L, Glomerular Filtration Rate > 60.0, Calcium Level 8.9, Total Bilirubin 0.2, Aspartate Amino Transf (AST/SGOT) 9, Alanine Aminotransferase (ALT/SGPT) 17, Alkaline Phosphatase 100, Total Protein 6.7, Albumin 3.2, Albumin/Globulin Ratio 0.91L CBC/BMP Laboratory Tests 07/16/19 06:35 Microbiology Microbiology 07/14/19 Respiratory Virus Panel (PCR) (BOB) - Final, Complete KEEGAN KINSEY PA-C Jul 16, 2019 10:25
[2019-07-16 14:00] VITALS: BP 142/82
[2019-07-16] MEDS ORDERED: BISACODYL 10 MG SUPP PR PRN (14:30)
[2019-07-16] MEDS: MIRALAX *UNIT DOSE* 17GM PACKET PO SCH ×2 (15:01→21:17)
[2019-07-16] MEDS: LevoFLOXacin 500 MG TABLET PO SCH (17:24)
[2019-07-16] MEDS: NICOTINE 21MG/24HR 1 EA TRANSDERMAL TD SCH (21:17)
[2019-07-16 22:00] VITALS: BP 150/82
[2019-07-17] MEDS: IPRATROPIUM 0.5MG/ALBUTEROL 2.5MG INH SOL UD 3ML (DUONEB)(J7620) NEB SCH ×3 (00:45→07:21)
[2019-07-17] MEDS: ANEXSIA, NORCO 7.5MG/325MG TABLET(HYDROCODONE/APAP) PO PRN ×2 (03:17→10:30)
[2019-07-17] MEDS: SLF 3 ML SYR IV SCH (03:18)
[2019-07-17 06:00] VITALS: BP 147/80
[2019-07-17 06:48] LABS: BASO # 0.1 10^3/uL (0.0-0.2); BASO % 0.8 % (0.0-1.0); EOS # 0.1 10^3/uL (0.0-0.5); EOS % 0.9 % (0.0-3.0); HEMATOCRIT 40.1 % (36.0-47.0); LYMPH # 3.1 10^3/uL (1.5-5.0); MEAN CORPUSCULAR HEMOGLOBIN 31.4 pg (27.0-33.0); MEAN CORPUSCULAR HGB CONC 32.4 g/dl (32.0-36.5); MEAN CORPUSCULAR VOLUME 96.9 fl (80.0-96.0); MONO # 0.7 10^3/uL (0.0-0.8); NEUTROPHILS # 6.5 10^3/uL (1.5-8.5); NEUTROPHILS % 61.7 % (36.0-66.0); PLATELET COUNT, AUTOMATED 272 10^3/uL (150-450); RED BLOOD COUNT 4.14 10^6/uL (4.00-5.40); WHITE BLOOD COUNT 10.6 10^3/uL (4.0-10.0)
[2019-07-17 07:15] LABS: ALBUMIN 3.4 GM/DL (3.2-5.2); ALT/SGPT 29 U/L (12-78); BILIRUBIN,TOTAL 0.1 MG/DL (0.2-1.0); BLOOD UREA NITROGEN 23 MG/DL (7-18); CALCIUM LEVEL 8.7 MG/DL (8.5-10.1); CARBON DIOXIDE LEVEL 29 MEQ/L (21-32); CHLORIDE LEVEL 105 MEQ/L (98-107); CREATININE FOR GFR 0.79 MG/DL (0.55-1.30); GLOMERULAR FILTRATION RATE > 60.0 (>51); GLUCOSE, FASTING 97 MG/DL (70-100); POTASSIUM SERUM 4.5 MEQ/L (3.5-5.1); SODIUM LEVEL 140 MEQ/L (136-145)
[2019-07-17] MEDS: HumaLOG INSULIN (NovoLOG) PER UNIT SC SCH ×2 (07:30→12:00)
[2019-07-17] MEDS: ENOXAPARIN 40 MG/0.4 ML SYRINGE (J1650) SC SCH (08:18)
[2019-07-17] MEDS: DOCUSATE SODIUM 100 MG CAP PO SCH (08:19)
[2019-07-17] MEDS: MIRALAX *UNIT DOSE* 17GM PACKET PO SCH (08:19)
[2019-07-17] MEDS: PANTOPRAZOLE 40MG TAB (PROTONIX) PO SCH (08:19)
[2019-07-17] MEDS: predniSONE 20 MG TAB PO SCH (08:19)
[2019-07-17 08:21] VITALS: BP 142/70
[2019-07-17] MEDS: lisinopriL 20 MG TAB PO SCH (08:21)
[2019-07-17] MEDS ORDERED: PANT40TA3 PO (10:27)
[2019-07-17] MEDS ORDERED: NICO21PAT TD (10:27)
[2019-07-17] MEDS ORDERED: BISA10SU PR (10:27)
[2019-07-17] MEDS ORDERED: LEVA1TAB2 PO (10:27)
[2019-07-17] MEDS ORDERED: ALB2.5NEB NEB (10:27)
[2019-07-17] MEDS ORDERED: ACET1TAB55 PO (10:27)
[2019-07-17] MEDS ORDERED: DOCU100C16 PO (10:27)
[2019-07-17] MEDS ORDERED: PRED20TA PO (10:27)
--- NOTE | 2019-07-18 15:19 | DSES ---
DATE OF ADMISSION: 07/14/2019 DATE OF DISCHARGE: 07/17/2019 PRIMARY CARE PHYSICIAN: Gladys Vivas This is a 59-year-old female patient who presented to [facility] Emergency Room complaining of increasing shortness of breath and cough. Notes that her symptoms have been progressively worsening since February. Thinks that this is related to a chemical associated in her workplace, although her symptoms do not worsen when she is there. She felt as though her symptoms were worse today and therefore presented to the emergency room. She was admitted for chronic obstructive pulmonary disease (COPD) exacerbation. She was given Decadron in the emergency room, admitted on Solu-Medrol and Levaquin as well as DuoNebs. Her respiratory status has steadily improved. She has been transitioned to oral Levaquin and on oral prednisone. She has been weaned from supplemental oxygen during her hospitalization, including at night and with ambulation. She would benefit from a referral to pulmonology or pulmonary rehabilitation in the outpatient setting, although she does walk a fair amount to work and other places and likely will test out of being eligible for pulmonary rehabilitation quickly. Patient has had smoking cessation counseling. She is diabetic. Her blood pressures remained stable during her hospitalization. DISCHARGE DIAGNOSES: 1. COPD exacerbation. 2. Systemic inflammatory response syndrome (SIRS). 3. [id number] diabetes mellitus. 4. Morbid obesity. 5. Chronic hypertension. 6. Nicotine dependence with smoker. DISCHARGE MEDICATIONS: - acetaminophen 650 mg every 4 hours as needed for pain or fever - albuterol sulfate 2.5 mg inhaled every 4-6 hours as needed for shortness of breath - bisacodyl 10 mg per rectum twice daily as needed for constipation - Colace 100 mg twice a day - levofloxacin 500 mg daily - nicotine patch 21 mg topically when she wakes, off before she goes to bed - Protonix 40 mg daily - prednisone 40 mg daily times three days, then 30 mg daily times three days, then 20 mg daily times three days, then 10 mg daily times three days - albuterol sulfate inhaler two puffs inhaled every 4 hours as needed for shortness of breath - Flonase nasal spray two sprays intranasally twice daily as needed for nasal congestion - [place] 7.5/325 one tablet every 6 hours as needed for pain - ibuprofen 800 mg three times daily as needed for pain - Combivent Respimat 20/100 one puff inhaled every 4 hours as needed for shortness of breath - lisinopril 20 mg daily - metformin 750 mg by mouth twice a day DISCHARGE PLAN: Followup with her primary care physician (PCP) in 7-10 days. Her activity should be as tolerated. Her diet is consistent-carbohydrate, no added salt, low fat. She did have a nebulizer faxed to [facility] for use of her nebulized albuterol. She would likely benefit from a pulmonary and pulmonary rehabilitation consult in the outpatient setting.
== END 2019-07-17 12:04 | disposition home or self-care (01) | DRG 140 ==
LOC: M ED 19:18 → M ED INP 22:11 → ENRESERVDT 07-15 00:45 → ENRESERVTM 07-15 00:45 → M PCU 07-15 01:35 → M MSPAV 07-15 14:31
PROVIDERS: ADMIT Internal Medicine; ATTEND Family Medicine
DX: J44.1 Chronic obstructive pulmonary disease with (acute) exacerbation (principal); E66.01 Morbid (severe) obesity due to excess calories; I10 Essential (primary) hypertension; Z68.32 Body mass index [BMI] 32.0-32.9, adult; E11.9 Type 2 diabetes mellitus without complications; R09.02 Hypoxemia; F17.210 Nicotine dependence, cigarettes, uncomplicated; Z79.899 Other long term (current) drug therapy; E78.5 Hyperlipidemia, unspecified; M19.90 Unspecified osteoarthritis, unspecified site; N95.0 Postmenopausal bleeding; M54.5 Low back pain

== ENCOUNTER → 2019-07-14 | Outpatient (CLI) | payer OTHER ==
[~2019-07-14] MED LIST changes: +FLON1SPR; +IBUP1TAB7 PO; +NICO21DI31 TD; +VENTAER INH
--- NOTE | 2019-07-15 05:10 | REP ---
Clinical: Shortness of breath. Technique: PA and lateral. Comparison: 08/16/2009. Findings: Mediastinum and cardiac silhouette are normal. Left lower lobe/lingular atelectasis cannot be excluded and should be correlated with auscultation. No effusion. No pneumothorax. Skeletal structures intact. Impression: Left lower lobe/lingular atelectasis suspected. Electronically Signed by Darren De Guzman MD 07/15/2019 05:01 A
== END ==
LOC: M CLY 10:46
PROVIDERS: ATTEND Nurse Practitioner Family
DX: R06.02 Shortness of breath (principal)

== ENCOUNTER → 2019-08-13 | Outpatient (CLI) | payer OTHER ==
[~2019-08-13] MED LIST changes: +ACET1TAB55 PO; +ALB2.5NEB NEB; +BISA10SU PR; +DOCU100C16 PO; +FLON1SPR; +IBUP1TAB7 PO; +LEVA1TAB2 PO; +NICO21DI31 TD; +NICO21PAT TD; +PANT40TA3 PO; +PRED20TA PO; +VENTAER INH
--- NOTE | 2019-08-13 16:48 | REP ---
HISTORY: Tobacco abuse. As per the protocol, only lung window images were sent to the read station for interpretation. There are no abnormal nodules, masses or opacities. Minimal chronic changes are seen in the right lung apex and there are curvilinear basilar opacities likely subsegmental atelectatic changes and/or fibrotic changes. Grossly the mediastinum and pulmonary abhinav are within normal limits. A right paratracheal lymph node is barely visualized due to the protocol but measures approximately 9 mm in short axis dimension. The imaged osseous structures and imaged upper abdomen appear to be grossly within normal limits. IMPRESSION: Lung-RADS category 2 benign exam. According to the revised Jackie Society criteria annual lung screening CT is recommended. Electronically Signed by Tk Carrillo DO 08/14/2019 08:35 A
== END ==
LOC: M RAD 13:40
PROVIDERS: ATTEND Physician Assistant
DX: Z12.2 Encounter for screening for malignant neoplasm of respiratory organs (principal); F17.218 Nicotine dependence, cigarettes, with other nicotine-induced disorders

== ENCOUNTER → 2019-08-31 | Outpatient (CLI) | payer OTHER ==
--- NOTE | 2019-09-01 19:19 | REP ---
Clinical: Postmenopausal bleeding. Technique: Transabdominal pelvic ultrasound followed by transvaginal examination for better evaluation of the endometrium and adnexa with color Doppler evaluation of the ovaries. Findings: Heterogeneous uterus measures 6.5 x 3.9 x 4.1 cm and there are suggestions for 2.2 cm anterior intramural fibroid. Endometrial complex is poorly distinguished from the adjacent myometrium. No obvious endocervical fluid is identified. Bilateral ovaries are normal in appearance and vascularity without torsion. Right ovary measures 2.1 x 1.7 x 1.9 cm (RI 0.74). Left ovary measures 1.2 x 1.1 x 2.5 cm (RI 0.51). No pelvic fluid or adnexal mass lesion. Impression: Heterogeneous poorly evaluated uterus possible 2.2 cm anterior fibroid. Endometrial complex is incompletely evaluated. Consider pelvic ultrasound for further investigation if necessary.
== END ==
LOC: M WHC 14:24
PROVIDERS: ATTEND Nurse Practitioner Family
DX: N95.0 Postmenopausal bleeding (principal); R93.89 Abnormal findings on diagnostic imaging of other specified body structures

== ENCOUNTER → 2019-11-05 | Outpatient (REF) | payer OTHER | LOC: M LAB REF 11:54 | PROVIDERS: ATTEND Physician Assistant | DX: N39.0 Urinary tract infection, site not specified (principal) ==

== ENCOUNTER → 2020-05-20 | Outpatient (REF) | payer OTHER ==
[~2020-05-20] MED LIST changes: -HYDR-2809 PO; +HYDR-4431 PO; +NICO1DIS12 TD; -NICO21DI31 TD; +PANT40TA29 PO; -PANT40TA3 PO
== END ==
LOC: M LAB REF 17:04
PROVIDERS: ATTEND Physician Assistant
DX: J44.9 Chronic obstructive pulmonary disease, unspecified (principal)

== ENCOUNTER → 2020-05-31 | Outpatient (REF) | payer OTHER ==
[2020-05-31 13:50] LABS: APPEARANCE, URINE TURBID (CLEAR); BACTERIA, URINE AUTO NEGATIVE (NEGATIVE); BILIRUBIN, URINE AUTO NEGATIVE (NEGATIVE); BLOOD, URINE BLOOD 1+ (NEGATIVE); COLOR, URINE YELLOW (YELLOW); GLUCOSE, URINE (UA) AUTO NEGATIVE (NEGATIVE); KETONE, URINE AUTO NEGATIVE (NEGATIVE); LEUKOCYTE ESTERASE, URINE AUTO 3+ (NEGATIVE); NITRITE, URINE AUTO POSITIVE (NEGATIVE); PROTEIN, URINE AUTO 2+ mg/dL (NEGATIVE); RBC, URINE AUTO 46 /HPF (0-3); SPECIFIC GRAVITY URINE AUTO 1.014 (1.002-1.035); SQUAMOUS EPITHELIAL CELL UR AU 8 /HPF (0-6); UROBILINOGEN, URINE AUTO 0.2 mg/dL (0.0-2.0); WBC, URINE AUTO TNTC /HPF (0-3)
== END ==
LOC: M LAB REF 12:26
PROVIDERS: ATTEND Physician Assistant Medical
DX: N39.0 Urinary tract infection, site not specified (principal)

== ENCOUNTER → 2020-06-28 | Outpatient (CLI) | payer OTHER ==
[~2020-06-28] MED LIST changes: -LISI-538 PO; +LISI20TA33 PO
[2020-06-28 09:48] LABS: ALT/SGPT 38 U/L (12-78); BILIRUBIN,TOTAL 0.2 MG/DL (0.2-1.0); BLOOD UREA NITROGEN 21 MG/DL (7-18); CALCIUM LEVEL 9.1 MG/DL (8.8-10.2); CARBON DIOXIDE LEVEL 27 MEQ/L (21-32); CHLORIDE LEVEL 104 MEQ/L (98-107); CHOLESTEROL LEVEL 180 MG/DL (<200); GLOMERULAR FILTRATION RATE > 60.0 (>45); GLUCOSE, FASTING 127 MG/DL (70-100); POTASSIUM SERUM 4.5 MEQ/L (3.5-5.1); SODIUM LEVEL 140 MEQ/L (136-145); TRIGLYCERIDES LEVEL 305 MG/DL (<150)
[2020-06-28 09:49] LABS: ALBUMIN 3.8 GM/DL (3.2-5.2); HDL CHOLESTEROL 40 MG/DL (>40); LDL CHOLESTEROL 79 MG/DL (<100); NON-HDL-C 140 MG/DL; TOTAL PROTEIN 7.1 GM/DL (6.4-8.2)
[2020-06-28 10:15] LABS: HEMOGLOBIN A1c 6.4 %
== END ==
LOC: M LAB 08:42
PROVIDERS: ATTEND Nurse Practitioner Family
DX: E11.9 Type 2 diabetes mellitus without complications (principal)

== ENCOUNTER → 2020-08-17 | Outpatient (CLI) | payer OTHER ==
--- NOTE | 2020-08-17 11:26 | REP ---
INDICATION: NICOTINE DEPEND COMPARISON: 08/13/2019 TECHNIQUE: Axial noncontrast images from the thoracic inlet to the upper abdomen using low-dose lung screening technique (LDCT). FINDINGS: Lung meeks are well aerated. Minimal linear fibro atelectatic changes primarily involving the right middle lobe and lingula and to a lesser extent the bilateral bases noted. No significant consolidation, obvious nodule or mass lesion. No effusion. No pneumothorax. Tracheobronchial tree is patent. IMPRESSION: Linear fibroatelectatic changes minimally increased from prior examination. No suspicious nodule or mass lesion identified. Lung-RADS category 2. Management recommendations include annual low-dose CT surveillance. <Electronically signed by Darren De Guzman > 08/17/20 1122
== END ==
LOC: M RAD 10:30
PROVIDERS: ATTEND Physician Assistant
DX: Z12.2 Encounter for screening for malignant neoplasm of respiratory organs (principal); F17.218 Nicotine dependence, cigarettes, with other nicotine-induced disorders

== ENCOUNTER → 2020-10-25 | Outpatient (REF) | payer OTHER | LOC: M SFHCCLAY 11:45 | PROVIDERS: ATTEND Nurse Practitioner Family | DX: I10 Essential (primary) hypertension (principal); M54.5 Low back pain; E78.2 Mixed hyperlipidemia; F17.200 Nicotine dependence, unspecified, uncomplicated; J44.9 Chronic obstructive pulmonary disease, unspecified; E11.9 Type 2 diabetes mellitus without complications ==

== ENCOUNTER → 2020-10-27 | Outpatient (CLI) | payer OTHER ==
[2020-10-27 08:54] LABS: BASO # 0.1 10^3/uL (0.0-0.2); BASO % 0.7 % (0.0-1.0); EOS # 0.2 10^3/uL (0.0-0.5); HEMATOCRIT 39.5 % (36.0-47.0); HEMOGLOBIN 12.9 g/dl (12.0-15.5); LYMPH # 2.9 10^3/uL (1.5-5.0); LYMPH % 26.2 % (24.0-44.0); MEAN CORPUSCULAR HEMOGLOBIN 30.8 pg (27.0-33.0); MEAN CORPUSCULAR HGB CONC 32.7 g/dl (32.0-36.5); MEAN CORPUSCULAR VOLUME 94.3 fl (80.0-96.0); MONO # 0.8 10^3/uL (0.0-0.8); MONO % 7.5 % (2.0-8.0); NEUTROPHILS # 7.1 10^3/uL (1.5-8.5); NEUTROPHILS % 63.2 % (36.0-66.0); PLATELET COUNT, AUTOMATED 267 10^3/uL (150-450); RED BLOOD COUNT 4.19 10^6/uL (4.00-5.40); WHITE BLOOD COUNT 11.2 10^3/uL (4.0-10.0)
[2020-10-27 11:01] LABS: MALB URINE SIEMENS 16.6 MG/L
[2020-10-27 11:05] LABS: ALBUMIN 3.7 GM/DL (3.2-5.2); ALT/SGPT 27 U/L (12-78); BILIRUBIN,TOTAL 0.3 MG/DL (0.2-1.0); BLOOD UREA NITROGEN 23 MG/DL (7-18); CALCIUM LEVEL 8.9 MG/DL (8.8-10.2); CARBON DIOXIDE LEVEL 25 MEQ/L (21-32); CHLORIDE LEVEL 104 MEQ/L (98-107); CHOLESTEROL LEVEL 216 MG/DL (<200); CREATININE FOR GFR 0.85 MG/DL (0.55-1.30); GLOMERULAR FILTRATION RATE > 60.0 (>45); GLUCOSE, FASTING 112 MG/DL (70-100); HDL CHOLESTEROL 48 MG/DL (>40); LDL CHOLESTEROL 102 MG/DL (<100); NON-HDL-C 168 MG/DL; POTASSIUM SERUM 4.3 MEQ/L (3.5-5.1); SODIUM LEVEL 138 MEQ/L (136-145); TOTAL PROTEIN 7.3 GM/DL (6.4-8.2); TRIGLYCERIDES LEVEL 330 MG/DL (<150)
[2020-10-27 11:28] LABS: HEMOGLOBIN A1c 6.9 %
== END ==
LOC: M LAB 08:05
PROVIDERS: ATTEND Nurse Practitioner Family
DX: E11.9 Type 2 diabetes mellitus without complications (principal); I10 Essential (primary) hypertension; M54.5 Low back pain; E78.2 Mixed hyperlipidemia; F17.200 Nicotine dependence, unspecified, uncomplicated; J44.9 Chronic obstructive pulmonary disease, unspecified

== ENCOUNTER → 2021-08-25 | Outpatient (CLI) | payer OTHER | LOC: M PAIN 11:30 | PROVIDERS: ATTEND Nurse Practitioner Family | DX: M47.816 Spondylosis without myelopathy or radiculopathy, lumbar region (principal); G89.29 Other chronic pain; E11.9 Type 2 diabetes mellitus without complications; J44.9 Chronic obstructive pulmonary disease, unspecified; F17.210 Nicotine dependence, cigarettes, uncomplicated; Z86.14 Personal history of Methicillin resistant Staphylococcus aureus infection; Z96.643 Presence of artificial hip joint, bilateral; Z79.51 Long term (current) use of inhaled steroids; Z79.84 Long term (current) use of oral hypoglycemic drugs; Z79.899 Other long term (current) drug therapy ==

== ENCOUNTER → 2021-08-31 | Outpatient (CLI) | payer OTHER | LOC: M RAD 12:38 | PROVIDERS: ATTEND Physician Assistant | DX: Z12.2 Encounter for screening for malignant neoplasm of respiratory organs (principal); F17.218 Nicotine dependence, cigarettes, with other nicotine-induced disorders; J98.4 Other disorders of lung ==

== ENCOUNTER → 2021-09-18 | Outpatient (CLI) | payer OTHER | LOC: M CLY 14:07 | PROVIDERS: ATTEND Nurse Practitioner Family | DX: Z96.641 Presence of right artificial hip joint (principal); M25.552 Pain in left hip ==

== ENCOUNTER → 2021-10-17 | Outpatient (CLI) | payer OTHER | LOC: M PAIN 11:15 | PROVIDERS: ATTEND Nurse Practitioner Family | DX: M51.16 Intervertebral disc disorders with radiculopathy, lumbar region (principal); G89.29 Other chronic pain; E11.9 Type 2 diabetes mellitus without complications; J44.9 Chronic obstructive pulmonary disease, unspecified; F17.210 Nicotine dependence, cigarettes, uncomplicated; Z86.14 Personal history of Methicillin resistant Staphylococcus aureus infection; Z88.8 Allergy status to other drugs, medicaments and biological substances; Z79.51 Long term (current) use of inhaled steroids; Z79.84 Long term (current) use of oral hypoglycemic drugs; Z79.899 Other long term (current) drug therapy ==

== ENCOUNTER → 2021-11-09 | Outpatient (REF) | payer OTHER | LOC: M LAB REF 12:23 | PROVIDERS: ATTEND Physician Assistant | DX: N39.0 Urinary tract infection, site not specified (principal) ==

== ENCOUNTER → 2021-11-27 | Outpatient (REF) | payer OTHER ==
[2021-11-27 19:05] LABS: HEMATOCRIT 49.5 % (36.0-47.0); HEMOGLOBIN 16.2 g/dl (12.0-15.5); MEAN CORPUSCULAR HEMOGLOBIN 32.5 pg (27.0-33.0); MEAN CORPUSCULAR HGB CONC 32.7 g/dl (32.0-36.5); MEAN CORPUSCULAR VOLUME 99.4 fl (80.0-96.0); RED BLOOD COUNT 4.98 10^6/uL (4.00-5.40); WHITE BLOOD COUNT 10.1 10^3/uL (4.0-10.0)
[2021-11-27 19:06] LABS: BASO # 0.1 10^3/uL (0.0-0.2); BASO % 1.2 % (0.0-1.0); EOS # 0.3 10^3/uL (0.0-0.5); EOS % 2.8 % (0.0-3.0); LYMPH # 2.6 10^3/uL (1.5-5.0); LYMPH % 25.9 % (24.0-44.0); MONO # 0.8 10^3/uL (0.0-0.8); NEUTROPHILS # 6.2 10^3/uL (1.5-8.5); PLATELET COUNT, AUTOMATED 300 10^3/uL (150-450)
[2021-11-27 20:00] LABS: ALT/SGPT 29 IU/L (0-32); BILIRUBIN,TOTAL 0.2 MG/DL (0.2-1.0); BLOOD UREA NITROGEN 18 MG/DL (7-18); CALCIUM LEVEL 9.5 MG/DL (8.8-10.2); CARBON DIOXIDE LEVEL 28 mmol/L (20-29); CHLORIDE LEVEL 107 MEQ/L (98-107); CREATININE FOR GFR 0.85 MG/DL (0.55-1.30); GLOMERULAR FILTRATION RATE > 60.0 (>45); GLUCOSE, FASTING 114 MG/DL (70-100); POTASSIUM SERUM 4.5 MEQ/L (3.5-5.1); SODIUM LEVEL 141 MEQ/L (136-145); TRIGLYCERIDES LEVEL 592 MG/DL (<150)
[2021-11-27 20:01] LABS: CHOLESTEROL LEVEL 197 MG/DL (<200); CHOLESTEROL RISK RATIO 5.969 (<5); FREE T4 0.92 NG/DL (0.76-1.46); HDL CHOLESTEROL 33 MG/DL (>40); NON-HDL-C 164 MG/DL; THYROID STIMULATING HORMONE 0.939 uIU/ML (0.358-3.740); TOTAL PROTEIN 7.7 GM/DL (6.4-8.2)
[2021-11-27 22:45] LABS: CREATININE, URINE 74.6 MG/DL; MAU/CREAT RATIO 10.7 MCG/MG (0.0-30.0)
[2021-11-27 23:17] LABS: HEMOGLOBIN A1c 6.3 %
== END ==
LOC: M SFHCCLAY 13:46
PROVIDERS: ATTEND Nurse Practitioner Family
DX: I10 Essential (primary) hypertension (principal); E11.9 Type 2 diabetes mellitus without complications; J44.9 Chronic obstructive pulmonary disease, unspecified

== ENCOUNTER 2021-12-04 12:38 | Outpatient (RCR) | payer OTHER | END 2022-01-03 | LOC: M PT 12:38 | PROVIDERS: ATTEND Nurse Practitioner Family | DX: M45.8 Ankylosing spondylitis sacral and sacrococcygeal region (principal) ==

== ENCOUNTER → 2021-12-05 | Outpatient (CLI) | payer OTHER | LOC: M PLAIMG 08:43 | PROVIDERS: ATTEND Orthopaedic Surgery | DX: M51.26 Other intervertebral disc displacement, lumbar region (principal); M47.816 Spondylosis without myelopathy or radiculopathy, lumbar region ==

== ENCOUNTER → 2021-12-18 | Outpatient (CLI) | payer OTHER | LOC: M PAIN 14:15 | PROVIDERS: ATTEND Nurse Practitioner Family | DX: M51.16 Intervertebral disc disorders with radiculopathy, lumbar region (principal); G89.29 Other chronic pain; E11.40 Type 2 diabetes mellitus with diabetic neuropathy, unspecified; I10 Essential (primary) hypertension; J44.9 Chronic obstructive pulmonary disease, unspecified; F17.210 Nicotine dependence, cigarettes, uncomplicated; Z86.14 Personal history of Methicillin resistant Staphylococcus aureus infection; Z88.8 Allergy status to other drugs, medicaments and biological substances; Z79.51 Long term (current) use of inhaled steroids; Z79.84 Long term (current) use of oral hypoglycemic drugs; Z79.899 Other long term (current) drug therapy ==

== ENCOUNTER → 2022-01-17 | Outpatient (REF) | payer OTHER | LOC: M SFHCWAGY 10:35 | PROVIDERS: ATTEND Obstetrics & Gynecology | DX: Z12.4 Encounter for screening for malignant neoplasm of cervix (principal); R87.610 Atypical squamous cells of undetermined significance on cytologic smear of cervix (ASC-US) ==

== ENCOUNTER 2022-02-01 09:55 | Outpatient (RCR) | payer OTHER | END 2022-02-02 | LOC: M PT 09:55 | PROVIDERS: ATTEND Nurse Practitioner Family | DX: M45.8 Ankylosing spondylitis sacral and sacrococcygeal region (principal) ==

== ENCOUNTER 2022-02-19 11:10 | Outpatient (RCR) | payer OTHER | END 2022-03-05 | LOC: M PT 11:10 | PROVIDERS: ATTEND Nurse Practitioner Family | DX: M45.8 Ankylosing spondylitis sacral and sacrococcygeal region (principal) ==

== ENCOUNTER → 2022-02-26 | Outpatient (REF) | payer OTHER ==
[2022-02-26 22:06] LABS: APPEARANCE, URINE MANUAL CLOUDY (CLEAR); COLOR, URINE MANUAL YELLOW (YELLOW)
[2022-02-26 22:07] LABS: BILIRUBIN, URINE MANUAL NEGATIVE (NEGATIVE); BLOOD URINE MANUAL POSITIVE (NEGATIVE); GLUCOSE, URINE (UA) MANUAL NEGATIVE (NEGATIVE); KETONE, URINE MANUAL NEGATIVE (NEGATIVE); LEUKOCYTE ESTERASE, URINE MAN POSITIVE (NEGATIVE); NITRITE, URINE MANUAL POSITIVE (NEGATIVE); PROTEIN, URINE MANUAL 1+ mg/dL (NEGATIVE); UROBILINOGEN, URINE MANUAL NORMAL (NORMAL)
[2022-02-26 22:21] LABS: BACTERIA, URINE LARGE AMOUNT; SQUAMOUS EPITHELIAL CELL URINE SMALL AMOUNT /hpf (SMALL AMT); TRANSITIONAL EPI CELLS, URINE SMALL AMOUNT /hpf; WBC, URINE TNTC /hpf (0-3)
[2022-02-26 22:22] LABS: HYALINE CAST, URINE NONE SEEN /lpf (0-1)
== END ==
LOC: M LAB REF 21:41
PROVIDERS: ATTEND Physician Assistant Medical
DX: N39.0 Urinary tract infection, site not specified (principal)

== ENCOUNTER → 2022-05-10 | Outpatient (CLI) | payer OTHER | LOC: M LABSMTC 10:53 | PROVIDERS: ATTEND Anesthesiology | DX: Z01.812 Encounter for preprocedural laboratory examination (principal); Z20.822 Contact with and (suspected) exposure to COVID-19 ==

== ENCOUNTER → 2022-05-15 | Outpatient (CLI) | payer OTHER ==
[~2022-05-15] MED LIST changes: +ISOVUE-M 300 61% 15ML VIAL As Ordered ONE; +LIDOCAINE 1% SDV 30ML VIAL As Ordered ONE; +diazePAM 5MG TABLET As Ordered ONE; +methylPREDNISolone SUSP 40MG/ML 1ML VIAL (DEPO MEDROL) As Ordered ONE
== END ==
LOC: M PAIN 10:00
PROVIDERS: ATTEND Anesthesiology
DX: M51.16 Intervertebral disc disorders with radiculopathy, lumbar region (principal); G89.29 Other chronic pain; E11.40 Type 2 diabetes mellitus with diabetic neuropathy, unspecified; I10 Essential (primary) hypertension; J44.9 Chronic obstructive pulmonary disease, unspecified; F17.210 Nicotine dependence, cigarettes, uncomplicated; Z86.14 Personal history of Methicillin resistant Staphylococcus aureus infection; Z96.643 Presence of artificial hip joint, bilateral; Z88.8 Allergy status to other drugs, medicaments and biological substances; Z79.51 Long term (current) use of inhaled steroids; Z79.84 Long term (current) use of oral hypoglycemic drugs; Z79.899 Other long term (current) drug therapy

== ENCOUNTER → 2022-05-30 | Outpatient (REF) | payer OTHER ==
[~2022-05-30] MED LIST changes: -ISOVUE-M 300 61% 15ML VIAL As Ordered ONE; -LIDOCAINE 1% SDV 30ML VIAL As Ordered ONE; -diazePAM 5MG TABLET As Ordered ONE; -methylPREDNISolone SUSP 40MG/ML 1ML VIAL (DEPO MEDROL) As Ordered ONE
[2022-05-30 17:19] LABS: BASO # 0.1 10^3/uL (0.0-0.2); BASO % 0.8 % (0.0-1.0); EOS # 0.2 10^3/uL (0.0-0.5); EOS % 1.7 % (0.0-3.0); HEMATOCRIT 45.4 % (36.0-47.0); HEMOGLOBIN 14.8 g/dl (12.0-15.5); LYMPH # 2.8 10^3/uL (1.5-5.0); LYMPH % 24.7 % (24.0-44.0); MEAN CORPUSCULAR HEMOGLOBIN 32.4 pg (27.0-33.0); MEAN CORPUSCULAR HGB CONC 32.6 g/dl (32.0-36.5); MEAN CORPUSCULAR VOLUME 99.3 fl (80.0-96.0); MONO # 0.8 10^3/uL (0.0-0.8); MONO % 7.3 % (2.0-8.0); NEUTROPHILS # 7.3 10^3/uL (1.5-8.5); NEUTROPHILS % 64.9 % (36.0-66.0); RED BLOOD COUNT 4.57 10^6/uL (4.00-5.40); WHITE BLOOD COUNT 11.2 10^3/uL (4.0-10.0)
[2022-05-30 17:33] LABS: CREATININE, URINE 111.8 MG/DL; MALB URINE SIEMENS < 3.0 MG/DL; MAU/CREAT RATIO 2.6 MCG/MG (0.0-30.0)
[2022-05-30 17:37] LABS: ALBUMIN 3.8 G/DL (3.2-5.2); ALKALINE PHOSPHATASE 109 U/L (46-116); ALT/SGPT 25 U/L (7.0-40); AST/SGOT 21 U/L (<34); BILIRUBIN,TOTAL 0.3 MG/DL (0.3-1.2); BLOOD UREA NITROGEN 33 MG/DL (9-23); CALCIUM LEVEL 9.4 MG/DL (8.3-10.6); CARBON DIOXIDE LEVEL 27 MMOL/L (20-31); CHLORIDE LEVEL 104 MMOL/L (98-107); CHOLESTEROL LEVEL 212 MG/DL (<200); CHOLESTEROL RISK RATIO 5.04 (<5); CREATININE FOR GFR 0.91 MG/DL (0.55-1.30); GLOMERULAR FILTRATION RATE > 60.0 (>45); GLUCOSE, FASTING 103 MG/DL (74-106); NON-HDL-C 170 MG/DL; POTASSIUM SERUM 4.9 MMOL/L (3.5-5.1); SODIUM LEVEL 137 MMOL/L (136-145); TOTAL PROTEIN 7.4 G/DL (5.7-8.2); TRIGLYCERIDES LEVEL 481 MG/DL (<150)
[2022-05-30 17:39] LABS: FREE T4 1.04 NG/DL (0.89-1.76)
[2022-05-30 18:00] LABS: HEMOGLOBIN A1c 5.9 % (4.0-6.0)
== END ==
LOC: M SFHCCLAY 13:46
PROVIDERS: ATTEND Nurse Practitioner Family
DX: M47.16 Other spondylosis with myelopathy, lumbar region (principal); R20.0 Anesthesia of skin; R20.2 Paresthesia of skin; I10 Essential (primary) hypertension; E11.9 Type 2 diabetes mellitus without complications; E78.2 Mixed hyperlipidemia; F17.200 Nicotine dependence, unspecified, uncomplicated

== ENCOUNTER → 2022-06-07 | Outpatient (REF) | payer OTHER ==
[2022-06-07 18:27] LABS: APPEARANCE, URINE MANUAL CLOUDY (CLEAR); BILIRUBIN, URINE MANUAL NEGATIVE (NEGATIVE); BLOOD URINE MANUAL POSITIVE (NEGATIVE); COLOR, URINE MANUAL LT YELLOW (YELLOW); GLUCOSE, URINE (UA) MANUAL 4+(1000 MG/DL) mg/dL (NEGATIVE); KETONE, URINE MANUAL NEGATIVE (NEGATIVE); LEUKOCYTE ESTERASE, URINE MAN POSITIVE (NEGATIVE); NITRITE, URINE MANUAL POSITIVE (NEGATIVE); PROTEIN, URINE MANUAL NEGATIVE (NEGATIVE); SPECIFIC GRAVITY,URINE MANUAL 1.015 (1.002-1.035); UROBILINOGEN, URINE MANUAL NORMAL (NORMAL)
[2022-06-07 18:49] LABS: BACTERIA, URINE LARGE AMOUNT; HYALINE CAST, URINE NONE SEEN /lpf (0-1); RBC, URINE 0-1 /hpf (0-3); SQUAMOUS EPITHELIAL CELL URINE SMALL AMOUNT /hpf (SMALL AMT); WBC, URINE TNTC /hpf (0-3)
== END ==
LOC: M LAB REF 17:00
PROVIDERS: ATTEND Physician Assistant
DX: N39.0 Urinary tract infection, site not specified (principal)

== ENCOUNTER 2022-06-18 03:27 | Emergency (ER) | payer OTHER ==
[~2022-06-18] VITALS: Ht 157.5 cm; Wt 77.3 kg
[2022-06-18] MEDS ORDERED: INCR1INH INH (03:42)
[2022-06-18] MEDS ORDERED: methylPREDNISolone 125MG 2ML VIAL IV ONE (07:00)
[2022-06-18] MEDS ORDERED: IPRATROPIUM 0.5MG/ALBUTEROL 2.5MG INH SOL UD 3ML (DUONEB) NEB ONE (07:05)
[2022-06-18] MEDS ORDERED: ALBUTEROL SULFATE 2.5MG/0.5ML INH NEB SOLN INH ONE (07:05)
[2022-06-18 07:54] LABS: BASO % 0.5 % (0.0-1.0); EOS # 0.1 10^3/uL (0.0-0.5); EOS % 1.5 % (0.0-3.0); HEMATOCRIT 39.5 % (36.0-47.0); HEMOGLOBIN 12.9 g/dl (12.0-15.5); LYMPH # 1.7 10^3/uL (1.5-5.0); LYMPH % 20.5 % (24.0-44.0); MEAN CORPUSCULAR HGB CONC 32.7 g/dl (32.0-36.5); MONO # 0.4 10^3/uL (0.0-0.8); MONO % 5.1 % (2.0-8.0); NEUTROPHILS # 5.8 10^3/uL (1.5-8.5); NEUTROPHILS % 71.8 % (36.0-66.0); RED BLOOD COUNT 4.03 10^6/uL (4.00-5.40); WHITE BLOOD COUNT 8.1 10^3/uL (4.0-10.0)
[2022-06-18 08:14] LABS: LIPASE 23 U/L (12-53)
[2022-06-18 08:22] LABS: ALBUMIN 3.7 G/DL (3.2-5.2); ALKALINE PHOSPHATASE 99 U/L (46-116); ALT/SGPT 23 U/L (7.0-40); AST/SGOT 25 U/L (<34); BILIRUBIN,DIRECT < 0.1 MG/DL (<0.4); BILIRUBIN,TOTAL 0.3 MG/DL (0.3-1.2); BLOOD UREA NITROGEN 19 MG/DL (9-23); CALCIUM LEVEL 8.8 MG/DL (8.3-10.6); CARBON DIOXIDE LEVEL 26 MMOL/L (20-31); CHLORIDE LEVEL 102 MMOL/L (98-107); CREATININE FOR GFR 0.66 MG/DL (0.55-1.30); GLOMERULAR FILTRATION RATE > 60.0 (>45); GLUCOSE, FASTING 107 MG/DL (74-106); POTASSIUM SERUM 4.4 MMOL/L (3.5-5.1); SODIUM LEVEL 137 MMOL/L (136-145); THYROID STIMULATING HORMONE 1.949 uIU/ML (0.55-4.78); TOTAL PROTEIN 6.8 G/DL (5.7-8.2)
[2022-06-18 08:37] LABS: RSV AMPLIFICATION NEGATIVE (NEGATIVE)
[2022-06-18 08:48] LABS: ABG BASE EXCESS -0.1 (-2.0-2.0); ABG HCO3 24.3 MEQ/L (22.0-26.0); ABG O2 SATURATION 94.5 % (95.0-99.0); ABG PARTIAL PRESSURE CO2 38.9 mmHg (35.0-45.0); ABG PARTIAL PRESSURE O2 73.6 mmHg (75.0-100.0); ABG STANDARD HCO3 24.4 MEQ/L (22.0-26.0); ABG TOTAL CO2 25.5 MEQ/L (23.0-31.0); ABG pH (ARTERIAL) 7.414 UNITS (7.350-7.450)
[2022-06-18] MEDS ORDERED: PRED20TA PO (09:17)
[2022-06-18] MEDS ORDERED: NIRM1TAB PO ×2 (09:18→10:02)
[2022-06-18 09:45] VITALS: BP 120/64
== END 2022-06-18 10:08 | disposition left against medical advice (07) ==
LOC: EDBD 03:27 → M ED 03:27
DX: U07.1 COVID-19 (principal); J44.1 Chronic obstructive pulmonary disease with (acute) exacerbation; R09.02 Hypoxemia; Z53.9 Procedure and treatment not carried out, unspecified reason; E11.9 Type 2 diabetes mellitus without complications; E78.5 Hyperlipidemia, unspecified; I10 Essential (primary) hypertension; Z90.49 Acquired absence of other specified parts of digestive tract; F17.200 Nicotine dependence, unspecified, uncomplicated; Z79.51 Long term (current) use of inhaled steroids; Z79.84 Long term (current) use of oral hypoglycemic drugs; Z79.899 Other long term (current) drug therapy
CPT/HCPCS: 36600; 71046; 80048; 80076; 82803; 83690; 83880; 84439; 84443; 85025; 87040; 87631; 93005; 93041; 94640; 96374; 99285; J2930

== ENCOUNTER → 2022-07-13 | Outpatient (CLI) | payer OTHER ==
[~2022-07-13] MED LIST changes: +INCR1INH INH; +NIRM1TAB PO
== END ==
LOC: M PAIN 09:45
PROVIDERS: ATTEND Nurse Practitioner Family
DX: M79.10 Myalgia, unspecified site (principal); G89.29 Other chronic pain; E11.40 Type 2 diabetes mellitus with diabetic neuropathy, unspecified; I10 Essential (primary) hypertension; J44.9 Chronic obstructive pulmonary disease, unspecified; Z86.14 Personal history of Methicillin resistant Staphylococcus aureus infection; Z96.643 Presence of artificial hip joint, bilateral; Z87.891 Personal history of nicotine dependence; Z88.8 Allergy status to other drugs, medicaments and biological substances; Z79.51 Long term (current) use of inhaled steroids; Z79.84 Long term (current) use of oral hypoglycemic drugs; Z79.899 Other long term (current) drug therapy

== ENCOUNTER → 2022-08-20 | Outpatient (CLI) | payer OTHER | LOC: M PAIN 14:00 | PROVIDERS: ATTEND Nurse Practitioner Family | DX: M79.10 Myalgia, unspecified site (principal); M54.2 Cervicalgia; G89.29 Other chronic pain; E11.40 Type 2 diabetes mellitus with diabetic neuropathy, unspecified; I10 Essential (primary) hypertension; J44.9 Chronic obstructive pulmonary disease, unspecified; Z86.14 Personal history of Methicillin resistant Staphylococcus aureus infection; Z87.891 Personal history of nicotine dependence; Z88.8 Allergy status to other drugs, medicaments and biological substances; Z79.51 Long term (current) use of inhaled steroids; Z79.84 Long term (current) use of oral hypoglycemic drugs; Z79.899 Other long term (current) drug therapy ==

== ENCOUNTER → 2022-09-17 | Outpatient (REF) | payer OTHER ==
[2022-09-17 13:28] LABS: APPEARANCE, URINE CLOUDY (CLEAR); BACTERIA, URINE AUTO NEGATIVE (NEGATIVE); BILIRUBIN, URINE AUTO NEGATIVE (NEGATIVE); BLOOD, URINE BLOOD 2+ (NEGATIVE); COLOR, URINE YELLOW (YELLOW); GLUCOSE, URINE (UA) AUTO 3+ mg/dL (NEGATIVE); KETONE, URINE AUTO NEGATIVE (NEGATIVE); LEUKOCYTE ESTERASE, URINE AUTO 3+ (NEGATIVE); MUCUS, URINE SMALL (NEGATIVE); NITRITE, URINE AUTO POSITIVE (NEGATIVE); PROTEIN, URINE AUTO 3+ mg/dL (NEGATIVE); RBC, URINE AUTO 122 /HPF (0-3); SPECIFIC GRAVITY URINE AUTO 1.021 (1.002-1.035); SQUAMOUS EPITHELIAL CELL UR AU 2 /HPF (0-6); UROBILINOGEN, URINE AUTO 0.2 mg/dL (0.0-2.0); WBC, URINE AUTO TNTC /HPF (0-3)
== END ==
LOC: M LAB REF 12:20
PROVIDERS: ATTEND Physician Assistant Medical
DX: N39.0 Urinary tract infection, site not specified (principal)

== ENCOUNTER → 2022-09-18 | Outpatient (CLI) | payer OTHER ==
[~2022-09-18] MED LIST changes: +BUPIVACAINE HCL 0.25% 10ML VIAL As Ordered ONE; +BUPIVACAINE HCL 0.25% 30ML VIAL As Ordered ONE
== END ==
LOC: M PAIN 14:30
PROVIDERS: ATTEND Anesthesiology
DX: M79.12 Myalgia of auxiliary muscles, head and neck (principal); E11.40 Type 2 diabetes mellitus with diabetic neuropathy, unspecified; I10 Essential (primary) hypertension; J44.9 Chronic obstructive pulmonary disease, unspecified; Z86.14 Personal history of Methicillin resistant Staphylococcus aureus infection; Z96.643 Presence of artificial hip joint, bilateral; Z87.891 Personal history of nicotine dependence; Z88.8 Allergy status to other drugs, medicaments and biological substances; Z79.51 Long term (current) use of inhaled steroids; Z79.84 Long term (current) use of oral hypoglycemic drugs; Z79.899 Other long term (current) drug therapy
CPT/HCPCS: 20552; S0020

== ENCOUNTER → 2022-10-22 | Outpatient (CLI) | payer OTHER ==
[~2022-10-22] MED LIST changes: -BUPIVACAINE HCL 0.25% 10ML VIAL As Ordered ONE; -BUPIVACAINE HCL 0.25% 30ML VIAL As Ordered ONE
== END ==
LOC: M PAIN 14:15
PROVIDERS: ATTEND Nurse Practitioner Family
DX: M47.816 Spondylosis without myelopathy or radiculopathy, lumbar region (principal); M79.10 Myalgia, unspecified site; M47.817 Spondylosis without myelopathy or radiculopathy, lumbosacral region; G89.29 Other chronic pain; E11.40 Type 2 diabetes mellitus with diabetic neuropathy, unspecified; I10 Essential (primary) hypertension; J44.9 Chronic obstructive pulmonary disease, unspecified; Z86.14 Personal history of Methicillin resistant Staphylococcus aureus infection; Z96.643 Presence of artificial hip joint, bilateral; Z87.891 Personal history of nicotine dependence

== ENCOUNTER → 2022-10-30 | Outpatient (CLI) | payer OTHER | LOC: M RAD 08:57 | PROVIDERS: ATTEND Physician Assistant | DX: R91.1 Solitary pulmonary nodule (principal); Z87.891 Personal history of nicotine dependence ==

== ENCOUNTER → 2022-11-20 | Outpatient (REF) | payer OTHER ==
[2022-11-20 17:16] LABS: APPEARANCE, URINE CLOUDY (CLEAR); BACTERIA, URINE AUTO 2+ (NEGATIVE); BILIRUBIN, URINE AUTO NEGATIVE (NEGATIVE); BLOOD, URINE BLOOD 1+ (NEGATIVE); COLOR, URINE YELLOW (YELLOW); GLUCOSE, URINE (UA) AUTO NEGATIVE (NEGATIVE); KETONE, URINE AUTO TRACE mg/dL (NEGATIVE); LEUKOCYTE ESTERASE, URINE AUTO 3+ (NEGATIVE); MUCUS, URINE SMALL (NEGATIVE); NITRITE, URINE AUTO POSITIVE (NEGATIVE); PROTEIN, URINE AUTO 1+ mg/dL (NEGATIVE); RBC, URINE AUTO 10 /HPF (0-3); SQUAMOUS EPITHELIAL CELL UR AU 3 /HPF (0-6); UROBILINOGEN, URINE AUTO 0.2 mg/dL (0.0-2.0); WBC, URINE AUTO TNTC /HPF (0-3)
== END ==
LOC: M LAB REF 16:23
PROVIDERS: ATTEND Physician Assistant
DX: N39.0 Urinary tract infection, site not specified (principal)

== ENCOUNTER → 2022-11-27 | Outpatient (CLI) | payer OTHER ==
[~2022-11-27] MED LIST changes: +NORCO, ANEXSIA 5/325MG TABLET (HYDROcodone/ACETAMINOPHEN) As Ordered ONE; +TRIAMCINOLONE ACETONIDE SUSP 40MG/ML 1ML VIAL As Ordered ONE
== END ==
LOC: M PAIN 14:00
PROVIDERS: ATTEND Anesthesiology
DX: M79.12 Myalgia of auxiliary muscles, head and neck (principal); E78.5 Hyperlipidemia, unspecified; I10 Essential (primary) hypertension; E11.40 Type 2 diabetes mellitus with diabetic neuropathy, unspecified; J44.9 Chronic obstructive pulmonary disease, unspecified; D64.9 Anemia, unspecified; Z86.16 Personal history of COVID-19; Z87.891 Personal history of nicotine dependence; Z79.891 Long term (current) use of opiate analgesic; Z79.84 Long term (current) use of oral hypoglycemic drugs; Z79.899 Other long term (current) drug therapy; Z88.8 Allergy status to other drugs, medicaments and biological substances
CPT/HCPCS: 20552; J0665; J3301

== ENCOUNTER → 2022-12-11 | Outpatient (REF) | payer OTHER ==
[~2022-12-11] MED LIST changes: -NORCO, ANEXSIA 5/325MG TABLET (HYDROcodone/ACETAMINOPHEN) As Ordered ONE; -TRIAMCINOLONE ACETONIDE SUSP 40MG/ML 1ML VIAL As Ordered ONE
[2022-12-11 17:38] LABS: BASO # 0.1 10^3/uL (0.0-0.2); BASO % 0.7 % (0.0-1.0); EOS # 0.2 10^3/uL (0.0-0.5); EOS % 1.7 % (0.0-3.0); HEMATOCRIT 42.4 % (36.0-47.0); HEMOGLOBIN 13.7 g/dl (12.0-15.5); LYMPH % 26.4 % (24.0-44.0); MEAN CORPUSCULAR HEMOGLOBIN 31.1 pg (27.0-33.0); MEAN CORPUSCULAR HGB CONC 32.3 g/dl (32.0-36.5); MEAN CORPUSCULAR VOLUME 96.1 fl (80.0-96.0); MONO # 0.9 10^3/uL (0.0-0.8); MONO % 7.5 % (2.0-8.0); NEUTROPHILS # 7.3 10^3/uL (1.5-8.5); NEUTROPHILS % 63.1 % (36.0-66.0); PLATELET COUNT, AUTOMATED 128 10^3/uL (150-450); RED BLOOD COUNT 4.41 10^6/uL (4.00-5.40); WHITE BLOOD COUNT 11.5 10^3/uL (4.0-10.0)
[2022-12-11 17:46] LABS: MALB URINE SIEMENS < 3.0 MG/L; MAU/CREAT RATIO 5.7 MCG/MG (0.0-30.0)
[2022-12-11 17:51] LABS: ALBUMIN 3.9 G/DL (3.2-5.2); ALKALINE PHOSPHATASE 106 U/L (46-116); ALT/SGPT 17 U/L (7.0-40); AST/SGOT < 8 U/L (<34); BILIRUBIN,TOTAL 0.2 MG/DL (0.3-1.2); BLOOD UREA NITROGEN 28 MG/DL (9-23); CALCIUM LEVEL 9.4 MG/DL (8.3-10.6); CARBON DIOXIDE LEVEL 28 MMOL/L (20-31); CHLORIDE LEVEL 101 MMOL/L (98-107); CHOLESTEROL LEVEL 196 MG/DL (<200); CHOLESTEROL RISK RATIO 3.92 (<5); GLOMERULAR FILTRATION RATE > 60.0 (>45); GLUCOSE, FASTING 110 MG/DL (74-106); HDL CHOLESTEROL 49.9 MG/DL (>40); LDL CHOLESTEROL 90.7 MG/DL (<100); NON-HDL-C 146.1 MG/DL; POTASSIUM SERUM 4.5 MMOL/L (3.5-5.1); SODIUM LEVEL 137 MMOL/L (136-145); THYROID STIMULATING HORMONE 0.992 uIU/ML (0.55-4.78); TOTAL PROTEIN 7.1 G/DL (5.7-8.2); TRIGLYCERIDES LEVEL 277 MG/DL (<150)
[2022-12-11 17:57] LABS: HEMOGLOBIN A1c 5.8 % (4.0-6.0)
== END ==
LOC: M SFHCCLAY 13:44
PROVIDERS: ATTEND Nurse Practitioner Family
DX: M47.16 Other spondylosis with myelopathy, lumbar region (principal); I10 Essential (primary) hypertension; E78.2 Mixed hyperlipidemia; E11.9 Type 2 diabetes mellitus without complications; R20.2 Paresthesia of skin; R20.0 Anesthesia of skin; F17.200 Nicotine dependence, unspecified, uncomplicated

== ENCOUNTER → 2023-01-18 | Outpatient (REF) | payer OTHER ==
[2023-01-18 13:19] LABS: APPEARANCE, URINE CLOUDY (CLEAR); BACTERIA, URINE AUTO 2+ (NEGATIVE); BILIRUBIN, URINE AUTO NEGATIVE (NEGATIVE); BLOOD, URINE BLOOD 1+ (NEGATIVE); COLOR, URINE YELLOW (YELLOW); GLUCOSE, URINE (UA) AUTO 3+ mg/dL (NEGATIVE); KETONE, URINE AUTO NEGATIVE (NEGATIVE); LEUKOCYTE ESTERASE, URINE AUTO 3+ (NEGATIVE); MUCUS, URINE SMALL (NEGATIVE); NITRITE, URINE AUTO NEGATIVE (NEGATIVE); PROTEIN, URINE AUTO 1+ mg/dL (NEGATIVE); RBC, URINE AUTO 8 /HPF (0-3); SQUAMOUS EPITHELIAL CELL UR AU 1 /HPF (0-6); UROBILINOGEN, URINE AUTO 0.2 mg/dL (0.0-2.0); WBC, URINE AUTO TNTC /HPF (0-3)
== END ==
LOC: M LAB REF 11:57
PROVIDERS: ATTEND Physician Assistant
DX: N39.0 Urinary tract infection, site not specified (principal)

== ENCOUNTER → 2023-02-25 | Outpatient (REF) | payer OTHER ==
[2023-02-25 19:05] LABS: APPEARANCE, URINE CLOUDY (CLEAR); BACTERIA, URINE AUTO 3+ (NEGATIVE); BILIRUBIN, URINE AUTO NEGATIVE (NEGATIVE); BLOOD, URINE BLOOD 1+ (NEGATIVE); COLOR, URINE YELLOW (YELLOW); GLUCOSE, URINE (UA) AUTO NEGATIVE (NEGATIVE); KETONE, URINE AUTO NEGATIVE (NEGATIVE); LEUKOCYTE ESTERASE, URINE AUTO 3+ (NEGATIVE); NITRITE, URINE AUTO NEGATIVE (NEGATIVE); PROTEIN, URINE AUTO 2+ mg/dL (NEGATIVE); RBC, URINE AUTO 21 /HPF (0-3); SPECIFIC GRAVITY URINE AUTO 1.018 (1.002-1.035); SQUAMOUS EPITHELIAL CELL UR AU 2 /HPF (0-6); UROBILINOGEN, URINE AUTO 0.2 mg/dL (0.0-2.0); WBC, URINE AUTO TNTC /HPF (0-3)
== END ==
LOC: M LAB REF 16:29
PROVIDERS: ATTEND Physician Assistant Medical
DX: N39.0 Urinary tract infection, site not specified (principal)

== ENCOUNTER → 2023-04-18 | Outpatient (CLI) | payer OTHER ==
[2023-04-18 18:18] LABS: BLOOD UREA NITROGEN 35 MG/DL (9-23); CALCIUM LEVEL 9.3 MG/DL (8.3-10.6); CARBON DIOXIDE LEVEL 27 MMOL/L (20-31); CHLORIDE LEVEL 103 MMOL/L (98-107); CREATININE FOR GFR 0.97 MG/DL (0.55-1.30); GLOMERULAR FILTRATION RATE > 60.0 (>45); GLUCOSE, FASTING 157 MG/DL (74-106); POTASSIUM SERUM 4.9 MMOL/L (3.5-5.1); SODIUM LEVEL 136 MMOL/L (136-145)
== END ==
LOC: M LAB 16:37
PROVIDERS: ATTEND Obstetrics & Gynecology Female Pelvic Medicine and Reconstructive Surgery
DX: Z87.440 Personal history of urinary (tract) infections (principal)

== ENCOUNTER → 2023-04-18 | Outpatient (CLI) | payer OTHER ==
[~2023-04-18] MED LIST changes: +NORCO, ANEXSIA 5/325MG TABLET (HYDROcodone/ACETAMINOPHEN) As Ordered ONE; +TRIAMCINOLONE ACETONIDE SUSP 40MG/ML 1ML VIAL As Ordered ONE
== END ==
LOC: M PAIN 14:15
PROVIDERS: ATTEND Anesthesiology
DX: M79.12 Myalgia of auxiliary muscles, head and neck (principal); M79.18 Myalgia, other site; E78.5 Hyperlipidemia, unspecified; I10 Essential (primary) hypertension; E11.40 Type 2 diabetes mellitus with diabetic neuropathy, unspecified; J44.9 Chronic obstructive pulmonary disease, unspecified; D64.9 Anemia, unspecified; Z86.16 Personal history of COVID-19; Z87.891 Personal history of nicotine dependence; Z79.84 Long term (current) use of oral hypoglycemic drugs; Z79.891 Long term (current) use of opiate analgesic; Z79.899 Other long term (current) drug therapy; Z88.8 Allergy status to other drugs, medicaments and biological substances
CPT/HCPCS: 20553; J0665; J3301

== ENCOUNTER → 2023-05-13 | Outpatient (CLI) | payer OTHER ==
[~2023-05-13] MED LIST changes: -NORCO, ANEXSIA 5/325MG TABLET (HYDROcodone/ACETAMINOPHEN) As Ordered ONE; -TRIAMCINOLONE ACETONIDE SUSP 40MG/ML 1ML VIAL As Ordered ONE
== END ==
LOC: M PLAIMG 10:05
PROVIDERS: ATTEND Physician Assistant
DX: R91.8 Other nonspecific abnormal finding of lung field (principal); J84.9 Interstitial pulmonary disease, unspecified

== ENCOUNTER → 2023-05-14 | Outpatient (CLI) | payer OTHER | LOC: M CLY 14:08 | PROVIDERS: ATTEND Nurse Practitioner Family | DX: R30.0 Dysuria (principal); M25.551 Pain in right hip; Z96.641 Presence of right artificial hip joint; M86.8X8 Other osteomyelitis, other site ==

== ENCOUNTER → 2023-05-30 | Outpatient (CLI) | payer OTHER ==
[2023-05-30 13:32] LABS: ALBUMIN 3.5 G/DL (3.2-5.2); ALKALINE PHOSPHATASE 92 U/L (46-116); ALT/SGPT 18 U/L (7.0-40); AST/SGOT 14 U/L (<34); BILIRUBIN,TOTAL 0.2 MG/DL (0.3-1.2); BLOOD UREA NITROGEN 16 MG/DL (9-23); CALCIUM LEVEL 9.2 MG/DL (8.3-10.6); CARBON DIOXIDE LEVEL 30 MMOL/L (20-31); CHLORIDE LEVEL 105 MMOL/L (98-107); CREATININE FOR GFR 0.74 MG/DL (0.55-1.30); GLOMERULAR FILTRATION RATE > 60.0 (>45); GLUCOSE, FASTING 96 MG/DL (74-106); POTASSIUM SERUM 4.2 MMOL/L (3.5-5.1); SODIUM LEVEL 140 MMOL/L (136-145); TOTAL PROTEIN 6.7 G/DL (5.7-8.2)
== END ==
LOC: M LAB 11:34
PROVIDERS: ATTEND Obstetrics & Gynecology Female Pelvic Medicine and Reconstructive Surgery
DX: N32.81 Overactive bladder (principal); Z87.440 Personal history of urinary (tract) infections

== ENCOUNTER → 2023-06-05 | Outpatient (CLI) | payer OTHER ==
[~2023-06-05] MED LIST changes: +ISOVUE-370 76% 100ML VIAL As Ordered ONE
== END ==
LOC: M RAD 12:33
PROVIDERS: ATTEND Obstetrics & Gynecology Female Pelvic Medicine and Reconstructive Surgery
DX: Z87.440 Personal history of urinary (tract) infections (principal); R16.0 Hepatomegaly, not elsewhere classified; K76.89 Other specified diseases of liver; N28.89 Other specified disorders of kidney and ureter
CPT/HCPCS: 74178; Q9967

== ENCOUNTER 2023-06-11 09:19 | Emergency (ER) | payer OTHER ==
[~2023-06-11] VITALS: Ht 160 cm; Wt 77.3 kg
[~2023-06-11 09:19] MED LIST changes: -ISOVUE-370 76% 100ML VIAL As Ordered ONE
[2023-06-11] MEDS ORDERED: GABA-282 PO (09:35)
[2023-06-11] MEDS ORDERED: ALOG25TA PO (09:35)
[2023-06-11] MEDS: predniSONE 20 MG TAB PO ONE (10:32)
[2023-06-11] MEDS: IPRATROPIUM 0.5MG/ALBUTEROL 2.5MG INH SOL UD 3ML (DUONEB) NEB ONE (10:39)
[2023-06-11 11:59] LABS: BLOOD UREA NITROGEN 15 MG/DL (9-23); CALCIUM LEVEL 8.8 MG/DL (8.3-10.6); CARBON DIOXIDE LEVEL 27 MMOL/L (20-31); CHLORIDE LEVEL 106 MMOL/L (98-107); CREATININE FOR GFR 0.63 MG/DL (0.55-1.30); GLOMERULAR FILTRATION RATE > 60.0 (>45); GLUCOSE, FASTING 90 MG/DL (74-106); POTASSIUM SERUM 4.4 MMOL/L (3.5-5.1); SODIUM LEVEL 138 MMOL/L (136-145)
[2023-06-11] MEDS ORDERED: ISOVUE-370 76% 100ML VIAL As Ordered ONE (12:08)
[2023-06-11] MEDS ORDERED: METF10004 PO (12:27)
[2023-06-11] MEDS ORDERED: ALB2.5NEB INH (12:27)
[2023-06-11] MEDS ORDERED: PRED20TA PO (13:38)
[2023-06-11 13:51] VITALS: BP 136/72; TEMP 98.1; O2SAT 93
[2023-06-11] MEDS ORDERED: HOME MED LIST COMPLETE! XX SCH (14:45)
== END 2023-06-11 13:57 | disposition home or self-care (01) ==
LOC: M ED 09:19
DX: J44.1 Chronic obstructive pulmonary disease with (acute) exacerbation (principal); R00.0 Tachycardia, unspecified; I10 Essential (primary) hypertension; F17.200 Nicotine dependence, unspecified, uncomplicated; E11.9 Type 2 diabetes mellitus without complications; Z79.52 Long term (current) use of systemic steroids; Z79.811 Long term (current) use of aromatase inhibitors; Z79.4 Long term (current) use of insulin; Z79.899 Other long term (current) drug therapy
CPT/HCPCS: 36415; 71046; 71275; 80048; 85379; 87486; 87581; 87633; 87798; 93005; 94640; 99284; J7512; Q9967

== ENCOUNTER → 2023-06-24 | Outpatient (CLI) | payer OTHER ==
[~2023-06-24] MED LIST changes: +ALB2.5NEB INH; +ALOG25TA PO; +GABA-282 PO; +METF10004 PO
== END ==
LOC: M PAIN 15:00
PROVIDERS: ATTEND Nurse Practitioner Family
DX: M51.16 Intervertebral disc disorders with radiculopathy, lumbar region (principal); G89.29 Other chronic pain; E78.5 Hyperlipidemia, unspecified; I10 Essential (primary) hypertension; E11.40 Type 2 diabetes mellitus with diabetic neuropathy, unspecified; J44.9 Chronic obstructive pulmonary disease, unspecified; Z87.891 Personal history of nicotine dependence; Z79.84 Long term (current) use of oral hypoglycemic drugs; Z79.891 Long term (current) use of opiate analgesic; Z79.899 Other long term (current) drug therapy; Z88.8 Allergy status to other drugs, medicaments and biological substances

== ENCOUNTER → 2023-07-18 | Outpatient (REF) | payer OTHER ==
[2023-07-18 19:03] LABS: APPEARANCE, URINE CLEAR (CLEAR); BACTERIA, URINE AUTO NEGATIVE (NEGATIVE); BILIRUBIN, URINE AUTO NEGATIVE (NEGATIVE); BLOOD, URINE BLOOD NEGATIVE (NEGATIVE); COLOR, URINE YELLOW (YELLOW); GLUCOSE, URINE (UA) AUTO NEGATIVE (NEGATIVE); KETONE, URINE AUTO NEGATIVE (NEGATIVE); LEUKOCYTE ESTERASE, URINE AUTO NEGATIVE (NEGATIVE); MUCUS, URINE SMALL (NEGATIVE); NITRITE, URINE AUTO NEGATIVE (NEGATIVE); PROTEIN, URINE AUTO NEGATIVE (NEGATIVE); RBC, URINE AUTO 0 /HPF (0-3); SQUAMOUS EPITHELIAL CELL UR AU 1 /HPF (0-6); UROBILINOGEN, URINE AUTO 0.2 mg/dL (0.0-2.0); WBC, URINE AUTO 0 /HPF (0-3)
== END ==
LOC: M SMT 17:14
PROVIDERS: ATTEND Urology
DX: N39.0 Urinary tract infection, site not specified (principal)

== ENCOUNTER → 2023-08-08 | Outpatient (CLI) | payer OTHER ==
[~2023-08-08] MED LIST changes: +ISOVUE-M 300 61% 15ML VIAL As Ordered ONE; +LIDOCAINE 1% SDV 30ML VIAL As Ordered ONE; +methylPREDNISolone SUSP 40MG/ML 1ML VIAL (DEPO MEDROL) As Ordered ONE
== END ==
LOC: M PAIN 11:00
PROVIDERS: ATTEND Anesthesiology
DX: M51.16 Intervertebral disc disorders with radiculopathy, lumbar region (principal); Z79.51 Long term (current) use of inhaled steroids; Z79.84 Long term (current) use of oral hypoglycemic drugs; Z79.899 Other long term (current) drug therapy; Z79.891 Long term (current) use of opiate analgesic; E78.5 Hyperlipidemia, unspecified; I10 Essential (primary) hypertension; E11.9 Type 2 diabetes mellitus without complications; J44.9 Chronic obstructive pulmonary disease, unspecified; Z87.891 Personal history of nicotine dependence
CPT/HCPCS: 62323; J1010; Q9967

== ENCOUNTER → 2023-10-16 | Outpatient (CLI) | payer OTHER ==
[~2023-10-16] MED LIST changes: -ISOVUE-M 300 61% 15ML VIAL As Ordered ONE; -LIDOCAINE 1% SDV 30ML VIAL As Ordered ONE; -methylPREDNISolone SUSP 40MG/ML 1ML VIAL (DEPO MEDROL) As Ordered ONE
== END ==
LOC: M PAIN 11:00
PROVIDERS: ATTEND Anesthesiology
DX: M51.16 Intervertebral disc disorders with radiculopathy, lumbar region (principal); G89.29 Other chronic pain; E78.5 Hyperlipidemia, unspecified; I10 Essential (primary) hypertension; E11.40 Type 2 diabetes mellitus with diabetic neuropathy, unspecified; J44.9 Chronic obstructive pulmonary disease, unspecified; D64.9 Anemia, unspecified; Z87.891 Personal history of nicotine dependence; Z79.84 Long term (current) use of oral hypoglycemic drugs; Z79.891 Long term (current) use of opiate analgesic; Z79.899 Other long term (current) drug therapy; Z91.048 Other nonmedicinal substance allergy status

== ENCOUNTER → 2023-10-18 | Outpatient (CLI) | payer OTHER ==
[~2023-10-18] MED LIST changes: +ISOVUE-M 300 61% 15ML VIAL As Ordered ONE; +LIDOCAINE 1% SDV 30ML VIAL As Ordered ONE; +ONDANSETRON 4MG ORAL DISINTEGRATING TAB As Ordered ONE; +dexAMETHasone 10MG/1ML VIAL PRES.FREE As Ordered ONE; +diazePAM 5MG TABLET As Ordered ONE; +oxyCODONE 5MG TAB As Ordered ONE
== END ==
LOC: M PAIN 13:00
PROVIDERS: ATTEND Anesthesiology
DX: M51.16 Intervertebral disc disorders with radiculopathy, lumbar region (principal); G89.29 Other chronic pain; E78.5 Hyperlipidemia, unspecified; I10 Essential (primary) hypertension; E11.40 Type 2 diabetes mellitus with diabetic neuropathy, unspecified; J44.9 Chronic obstructive pulmonary disease, unspecified; D64.9 Anemia, unspecified; Z87.891 Personal history of nicotine dependence; Z79.84 Long term (current) use of oral hypoglycemic drugs; Z79.891 Long term (current) use of opiate analgesic; Z79.899 Other long term (current) drug therapy; Z88.8 Allergy status to other drugs, medicaments and biological substances
CPT/HCPCS: 64483; 64484; J0665; J1100; Q9967

== ENCOUNTER → 2023-11-06 | Outpatient (CLI) | payer OTHER ==
[~2023-11-06] MED LIST changes: -ISOVUE-M 300 61% 15ML VIAL As Ordered ONE; -LIDOCAINE 1% SDV 30ML VIAL As Ordered ONE; -ONDANSETRON 4MG ORAL DISINTEGRATING TAB As Ordered ONE; -dexAMETHasone 10MG/1ML VIAL PRES.FREE As Ordered ONE; -diazePAM 5MG TABLET As Ordered ONE; -oxyCODONE 5MG TAB As Ordered ONE
== END ==
LOC: M RAD 12:58
PROVIDERS: ATTEND Anesthesiology
DX: M51.16 Intervertebral disc disorders with radiculopathy, lumbar region (principal); M51.36 Other intervertebral disc degeneration, lumbar region; M47.896 Other spondylosis, lumbar region; M99.63 Osseous and subluxation stenosis of intervertebral foramina of lumbar region

== ENCOUNTER → 2023-11-18 | Outpatient (CLI) | payer OTHER | LOC: M PAIN 11:30 | PROVIDERS: ATTEND Nurse Practitioner Family | DX: M51.16 Intervertebral disc disorders with radiculopathy, lumbar region (principal); I10 Essential (primary) hypertension; E11.9 Type 2 diabetes mellitus without complications; J44.9 Chronic obstructive pulmonary disease, unspecified; Z79.1 Long term (current) use of non-steroidal anti-inflammatories (NSAID); Z79.51 Long term (current) use of inhaled steroids; Z79.891 Long term (current) use of opiate analgesic; Z79.899 Other long term (current) drug therapy; Z88.9 Allergy status to unspecified drugs, medicaments and biological substances ==

== ENCOUNTER 2023-11-22 06:27 | Emergency (ER) | payer OTHER ==
[2023-11-22] MEDS ORDERED: NORCO, ANEXSIA 5/325MG TABLET (HYDROcodone/ACETAMINOPHEN) As Ordered ONE (10:45)
== END 2023-11-22 18:13 | disposition home or self-care (01) ==
LOC: M ED 06:27
DX: M54.50 Low back pain, unspecified (principal); Z76.0 Encounter for issue of repeat prescription; I10 Essential (primary) hypertension; F17.210 Nicotine dependence, cigarettes, uncomplicated; Z79.51 Long term (current) use of inhaled steroids; Z79.1 Long term (current) use of non-steroidal anti-inflammatories (NSAID); Z79.84 Long term (current) use of oral hypoglycemic drugs; Z79.899 Other long term (current) drug therapy; Z79.52 Long term (current) use of systemic steroids

== ENCOUNTER → 2023-12-31 | Outpatient (CLI) | payer OTHER | LOC: M RAD 12:03 | PROVIDERS: ATTEND Urology | DX: N28.1 Cyst of kidney, acquired (principal) ==

== ENCOUNTER → 2024-02-19 | Outpatient (CLI) | payer OTHER ==
[~2024-02-19] MED LIST changes: +GABA-1172 PO; -GABA-282 PO
[2024-02-19 14:31] LABS: BASO # 0.1 10^3/uL (0.0-0.2); BASO % 0.9 % (0.0-1.0); EOS # 0.1 10^3/uL (0.0-0.5); EOS % 1.4 % (0.0-3.0); HEMATOCRIT 42.3 % (36.0-47.0); HEMOGLOBIN 13.7 g/dl (12.0-15.5); LYMPH # 1.8 10^3/uL (1.5-5.0); LYMPH % 21.9 % (24.0-44.0); MEAN CORPUSCULAR HEMOGLOBIN 31.4 pg (27.0-33.0); MEAN CORPUSCULAR HGB CONC 32.4 g/dl (32.0-36.5); MEAN CORPUSCULAR VOLUME 96.8 fl (80.0-96.0); MONO # 0.7 10^3/uL (0.0-0.8); NEUTROPHILS # 5.3 10^3/uL (1.5-8.5); NEUTROPHILS % 66.4 % (36.0-66.0); PLATELET COUNT, AUTOMATED 202 10^3/uL (150-450); RED BLOOD COUNT 4.37 10^6/uL (4.00-5.40)
[2024-02-19 14:56] LABS: FREE T4 1.21 NG/DL (0.89-1.76); THYROID STIMULATING HORMONE 0.886 uIU/ML (0.55-4.78)
[2024-02-19 14:57] LABS: ALBUMIN 3.4 G/DL (3.2-5.2); ALKALINE PHOSPHATASE 95 U/L (46-116); ALT/SGPT 14 U/L (7.0-40); AST/SGOT 11 U/L (<34); BILIRUBIN,TOTAL 0.2 MG/DL (0.3-1.2); BLOOD UREA NITROGEN 14 MG/DL (9-23); CALCIUM LEVEL 9.4 MG/DL (8.3-10.6); CARBON DIOXIDE LEVEL 30 MMOL/L (20-31); CHLORIDE LEVEL 107 MMOL/L (98-107); CHOLESTEROL LEVEL 157 MG/DL (<200); CHOLESTEROL RISK RATIO 4.08 (<5); GLOMERULAR FILTRATION RATE > 60.0 (>45); GLUCOSE, FASTING 112 MG/DL (74-106); HDL CHOLESTEROL 38.4 MG/DL (>40); LDL CHOLESTEROL 67.2 MG/DL (<100); MAGNESIUM LEVEL 1.8 MG/DL (1.8-2.4); NON-HDL-C 118.6 MG/DL; POTASSIUM SERUM 4.3 MMOL/L (3.5-5.1); SODIUM LEVEL 139 MMOL/L (136-145); TOTAL PROTEIN 6.7 G/DL (5.7-8.2); TRIGLYCERIDES LEVEL 257 MG/DL (<150)
[2024-02-19 14:58] LABS: HEMOGLOBIN A1c 5.8 % (4.0-6.0)
[2024-02-19 15:01] LABS: CREATININE, URINE 73.4 MG/DL
[2024-02-19 17:17] LABS: MAU/CREAT RATIO 0.6 MCG/MG (0.0-30.0)
== END ==
LOC: M LAB 13:20
PROVIDERS: ATTEND Nurse Practitioner Family
DX: I10 Essential (primary) hypertension (principal); F17.200 Nicotine dependence, unspecified, uncomplicated; E78.2 Mixed hyperlipidemia; E11.9 Type 2 diabetes mellitus without complications; R20.0 Anesthesia of skin; M47.16 Other spondylosis with myelopathy, lumbar region

== ENCOUNTER → 2024-03-03 | Outpatient (CLI) | payer OTHER ==
[~2024-03-03] MED LIST changes: +ISOVUE-M 300 61% 15ML VIAL As Ordered ONE; +LIDOCAINE 1% SDV 30ML VIAL As Ordered ONE; +dexAMETHasone 10MG/1ML VIAL PRES.FREE As Ordered ONE
== END ==
LOC: M PAIN 10:00
PROVIDERS: ATTEND Anesthesiology
DX: M51.16 Intervertebral disc disorders with radiculopathy, lumbar region (principal); G89.29 Other chronic pain; E78.5 Hyperlipidemia, unspecified; I10 Essential (primary) hypertension; E11.40 Type 2 diabetes mellitus with diabetic neuropathy, unspecified; J44.9 Chronic obstructive pulmonary disease, unspecified; D64.9 Anemia, unspecified; Z87.891 Personal history of nicotine dependence; Z79.891 Long term (current) use of opiate analgesic; Z79.84 Long term (current) use of oral hypoglycemic drugs; Z79.899 Other long term (current) drug therapy; Z91.048 Other nonmedicinal substance allergy status
CPT/HCPCS: 62323; J1100; Q9967

== ENCOUNTER → 2024-03-24 | Outpatient (REF) | payer OTHER ==
[~2024-03-24] MED LIST changes: -ISOVUE-M 300 61% 15ML VIAL As Ordered ONE; -LIDOCAINE 1% SDV 30ML VIAL As Ordered ONE; -dexAMETHasone 10MG/1ML VIAL PRES.FREE As Ordered ONE
[2024-03-24 13:26] LABS: APPEARANCE, URINE HAZY (CLEAR); BACTERIA, URINE AUTO 1+ (NEGATIVE); BILIRUBIN, URINE AUTO NEGATIVE (NEGATIVE); BLOOD, URINE BLOOD 1+ (NEGATIVE); COLOR, URINE STRAW (YELLOW); GLUCOSE, URINE (UA) AUTO NEGATIVE (NEGATIVE); KETONE, URINE AUTO NEGATIVE (NEGATIVE); LEUKOCYTE ESTERASE, URINE AUTO 3+ (NEGATIVE); NITRITE, URINE AUTO NEGATIVE (NEGATIVE); PROTEIN, URINE AUTO NEGATIVE (NEGATIVE); RBC, URINE AUTO 2 /HPF (0-3); SPECIFIC GRAVITY URINE AUTO 1.009 (1.002-1.035); SQUAMOUS EPITHELIAL CELL UR AU 0 /HPF (0-6); UROBILINOGEN, URINE AUTO 0.2 mg/dL (0.0-2.0); WBC, URINE AUTO 121 /HPF (0-3)
== END ==
LOC: M SMT 12:32
PROVIDERS: ATTEND Urology
DX: N39.0 Urinary tract infection, site not specified (principal)

== ENCOUNTER → 2024-05-11 | Outpatient (CLI) | payer OTHER | LOC: M PAIN 11:00 | PROVIDERS: ATTEND Nurse Practitioner Family | DX: M51.16 Intervertebral disc disorders with radiculopathy, lumbar region (principal); G89.29 Other chronic pain; E78.5 Hyperlipidemia, unspecified; I10 Essential (primary) hypertension; E11.40 Type 2 diabetes mellitus with diabetic neuropathy, unspecified; J44.9 Chronic obstructive pulmonary disease, unspecified; F17.210 Nicotine dependence, cigarettes, uncomplicated; Z79.84 Long term (current) use of oral hypoglycemic drugs; Z79.891 Long term (current) use of opiate analgesic; Z79.899 Other long term (current) drug therapy; Z96.641 Presence of right artificial hip joint; Z88.8 Allergy status to other drugs, medicaments and biological substances ==

== ENCOUNTER → 2024-07-01 | Outpatient (CLI) | payer OTHER | LOC: M RAD 16:45 | PROVIDERS: ATTEND Physician Assistant | DX: Z12.2 Encounter for screening for malignant neoplasm of respiratory organs (principal); F17.218 Nicotine dependence, cigarettes, with other nicotine-induced disorders; J98.11 Atelectasis ==

== ENCOUNTER 2024-07-24 09:39 | Emergency (ER) | payer OTHER ==
[~2024-07-24] VITALS: Ht 160 cm; Wt 71.9 kg
[2024-07-24 09:43] VITALS: BP 160/96; TEMP 97.3; O2SAT 92
== END 2024-07-24 10:32 | disposition left against medical advice (07) ==
LOC: M ED 09:39
DX: Z53.21 Procedure and treatment not carried out due to patient leaving prior to being seen by health care provider (principal)

== ENCOUNTER 2024-08-20 16:13 | Emergency (ER) | payer OTHER ==
[~2024-08-20] VITALS: Ht 160 cm; Wt 69.1 kg
[2024-08-20] MEDS ORDERED: HYDR-4517 PO ×2 (16:34→22:21)
[2024-08-20 17:22] LABS: APPEARANCE, URINE MANUAL CLEAR (CLEAR); COLOR, URINE MANUAL ORANGE (YELLOW)
[2024-08-20 17:23] LABS: BILIRUBIN, URINE MANUAL OBSCURED (NEGATIVE); GLUCOSE, URINE (UA) MANUAL OBSCURED mg/dL (NEGATIVE); KETONE, URINE MANUAL OBSCURED mg/dL (NEGATIVE); NITRITE, URINE MANUAL OBSCURED (NEGATIVE); PH,URINE MAN OBSCURED UNITS (5.0 - 7.0); PROTEIN, URINE MANUAL OBSCURED mg/dL (NEGATIVE); SPECIFIC GRAVITY,URINE MANUAL 1.021 (1.002-1.035); UROBILINOGEN, URINE MANUAL OBSCURED mg/dl (NORMAL)
[2024-08-20 17:24] LABS: BLOOD URINE MANUAL OBSCURED (NEGATIVE); LEUKOCYTE ESTERASE, URINE MAN OBSCURED (NEGATIVE)
[2024-08-20 18:49] LABS: BACTERIA, URINE LARGE AMOUNT; HYALINE CAST, URINE NONE SEEN /lpf (0-1); RBC, URINE 0-1 /hpf (0-3); SQUAMOUS EPITHELIAL CELL URINE MOD AMOUNT /hpf (SMALL AMT); WBC, URINE 30-40 /hpf (0-3)
[2024-08-20] MEDS: KETOROLAC 30 MG/ML 1ML VIAL IM ONE (20:15)
[2024-08-20] MEDS: ACETAMINOPHEN 500 MG TAB PO ONE (20:15)
[2024-08-20] MEDS: diazePAM 5MG TABLET PO ONE (20:15)
[2024-08-20] MEDS: LIDOCAINE 5% (LIDODERM) PATCH TD ONE (20:16)
[2024-08-20 21:56] VITALS: BP 160/78; TEMP 98.1; O2SAT 93
[2024-08-20] MEDS ORDERED: MEDR4PAK PO (22:21)
[2024-08-20] MEDS ORDERED: LIDO5DIS41 TOP (22:26)
[2024-08-20] MEDS: NORCO 5/325MG TABLET (HOME DOSE PACK) PO ONE (22:33)
== END 2024-08-20 22:39 | disposition home or self-care (01) ==
LOC: M ED 16:13 → EDBD 16:13 → M ED 22:39
DX: M51.26 Other intervertebral disc displacement, lumbar region (principal); E11.9 Type 2 diabetes mellitus without complications; I10 Essential (primary) hypertension; J44.9 Chronic obstructive pulmonary disease, unspecified; M54.81 Occipital neuralgia; F17.200 Nicotine dependence, unspecified, uncomplicated; Z79.899 Other long term (current) drug therapy
CPT/HCPCS: 81000; 87088; 87186; 96372; 99284; J1885

== ENCOUNTER → 2024-08-28 | Outpatient (REF) | payer OTHER ==
[~2024-08-28] MED LIST changes: +HYDR-4517 PO; +LIDO5DIS41 TOP; +MEDR4PAK PO
[2024-08-28 15:43] LABS: APPEARANCE, URINE CLEAR (CLEAR); BACTERIA, URINE AUTO NEGATIVE (NEGATIVE); BILIRUBIN, URINE AUTO NEGATIVE (NEGATIVE); BLOOD, URINE BLOOD NEGATIVE (NEGATIVE); COLOR, URINE YELLOW (YELLOW); GLUCOSE, URINE (UA) AUTO NEGATIVE (NEGATIVE); KETONE, URINE AUTO NEGATIVE (NEGATIVE); LEUKOCYTE ESTERASE, URINE AUTO NEGATIVE (NEGATIVE); NITRITE, URINE AUTO NEGATIVE (NEGATIVE); PROTEIN, URINE AUTO NEGATIVE (NEGATIVE); RBC, URINE AUTO 0 /HPF (0-3); SQUAMOUS EPITHELIAL CELL UR AU 1 /HPF (0-6); UROBILINOGEN, URINE AUTO 0.2 mg/dL (0.0-2.0); WBC, URINE AUTO 2 /HPF (0-3)
== END ==
LOC: M SMT 15:14
PROVIDERS: ATTEND Urology
DX: N39.0 Urinary tract infection, site not specified (principal)

== ENCOUNTER → 2024-12-14 | Outpatient (CLI) | payer OTHER ==
[~2024-12-14] MED LIST changes: +LIDO1ADH93 TOP; -LIDO5DIS41 TOP
[2024-12-14 10:13] LABS: BASO # 0.1 10^3/uL (0.0-0.2); BASO % 0.8 % (0.0-1.0); EOS # 0.1 10^3/uL (0.0-0.5); EOS % 1.9 % (0.0-3.0); LYMPH # 2.0 10^3/uL (1.5-5.0); LYMPH % 27.4 % (24.0-44.0); MONO # 0.6 10^3/uL (0.0-0.8); MONO % 8.1 % (2.0-8.0); NEUTROPHILS # 4.6 10^3/uL (1.5-8.5); NEUTROPHILS % 61.5 % (36.0-66.0); PLATELET COUNT, AUTOMATED 200 10^3/uL (150-450)
[2024-12-14 10:38] LABS: FREE T4 1.14 NG/DL (0.89-1.76)
[2024-12-14 10:39] LABS: ALT/SGPT 13 U/L (7.0-40); AST/SGOT 20 U/L (<34); CALCIUM LEVEL 9.2 MG/DL (8.3-10.6); CARBON DIOXIDE LEVEL 32 MMOL/L (20-31); CHLORIDE LEVEL 106 MMOL/L (98-107); CHOLESTEROL LEVEL 166 MG/DL (<200); CHOLESTEROL RISK RATIO 4.15 (<5); CREATININE FOR GFR 0.71 MG/DL (0.55-1.30); GLOMERULAR FILTRATION RATE > 90.0 (>45); LDL CHOLESTEROL 65.8 MG/DL (<100); MAGNESIUM LEVEL 1.8 MG/DL (1.8-2.4); NON-HDL-C 126.0 MG/DL; POTASSIUM SERUM 5.1 MMOL/L (3.5-5.1); SODIUM LEVEL 144 MMOL/L (136-145); TOTAL 25(OH) VITAMIN D 24.9 NG/ML (20.0-100.0); TRIGLYCERIDES LEVEL 301 MG/DL (<150)
[2024-12-14 10:55] LABS: ESTIMATED AVERAGE GLUCOSE 120.0 MG/DL (60-110)
== END ==
LOC: M LAB 09:05
PROVIDERS: ATTEND Nurse Practitioner Family
DX: E11.9 Type 2 diabetes mellitus without complications (principal); I10 Essential (primary) hypertension; M47.16 Other spondylosis with myelopathy, lumbar region; F17.200 Nicotine dependence, unspecified, uncomplicated; E78.2 Mixed hyperlipidemia

== ENCOUNTER → 2025-01-07 | Outpatient (REF) | payer OTHER ==
[2025-01-07 16:13] LABS: CREATININE, URINE 142.3 MG/DL; MALB URINE SIEMENS 5.0 MG/L; MAU/CREAT RATIO 3.5 MCG/MG (0.0-30.0)
== END ==
LOC: M SFHCCLAY 15:25
PROVIDERS: ATTEND Nurse Practitioner Family
DX: E11.9 Type 2 diabetes mellitus without complications (principal); I10 Essential (primary) hypertension; E78.2 Mixed hyperlipidemia; F17.200 Nicotine dependence, unspecified, uncomplicated; M47.16 Other spondylosis with myelopathy, lumbar region

== ENCOUNTER → 2025-01-07 | Outpatient (CLI) | payer OTHER | LOC: M RAD 14:42 | PROVIDERS: ATTEND Physician Assistant | DX: R91.8 Other nonspecific abnormal finding of lung field (principal); E11.9 Type 2 diabetes mellitus without complications; I10 Essential (primary) hypertension; E78.2 Mixed hyperlipidemia; F17.200 Nicotine dependence, unspecified, uncomplicated; M47.16 Other spondylosis with myelopathy, lumbar region ==

== ENCOUNTER → 2025-02-17 | Outpatient (CLI) | payer OTHER | LOC: M CLY 14:08 | PROVIDERS: ATTEND Nurse Practitioner Family | DX: M25.551 Pain in right hip (principal) ==

== ENCOUNTER → 2025-02-25 | Outpatient (CLI) | payer MEDICARE, OTHER ==
[2025-02-25 13:21] LABS: CALCIUM LEVEL 8.9 MG/DL (8.3-10.6); CARBON DIOXIDE LEVEL 32 MMOL/L (20-31); CHLORIDE LEVEL 101 MMOL/L (98-107); CREATININE FOR GFR 0.61 MG/DL (0.55-1.30); GLOMERULAR FILTRATION RATE > 90.0 (>45); POTASSIUM SERUM 4.8 MMOL/L (3.5-5.1); SODIUM LEVEL 141 MMOL/L (136-145)
== END ==
LOC: M LAB 12:15
PROVIDERS: ATTEND Nurse Practitioner Family
DX: R93.89 Abnormal findings on diagnostic imaging of other specified body structures (principal)

== ENCOUNTER → 2025-03-03 | Outpatient (CLI) | payer MEDICARE, OTHER ==
[~2025-03-03] MED LIST changes: +ISOVUE-370 76% 100 ML VIAL ONE
== END ==
LOC: M PLAIMG 12:19
PROVIDERS: ATTEND Nurse Practitioner Family
DX: K76.89 Other specified diseases of liver (principal); N28.1 Cyst of kidney, acquired; K57.30 Diverticulosis of large intestine without perforation or abscess without bleeding
CPT/HCPCS: 74178; Q9967